=== PATIENT | male | born 1945 | race Asian ===

== ENCOUNTER 2016-11-02 10:16 | Emergency (ER) | payer OTHER ==
[~2016-11-02] VITALS: Ht 165.1 cm; Wt 59.0 kg
[2016-11-02] MEDS ORDERED: METFORMIN HCL500 M1 PO (10:28)
[2016-11-02] MEDS ORDERED: METOPROLOL SUCC50 MG PO (10:28)
[2016-11-02] MEDS ORDERED: TAPAZOLE5 MG PO (13:12)
[2016-11-02] MEDS ORDERED: COUMADIN1 MG PO (13:12)
--- NOTE | 2016-11-02 20:54 | EKG ---
[facility] [address] [facility] [place] [address] Signed Atrial fibrillation with rapid ventricular response Low voltage QRS Nonspecific T wave abnormality Abnormal ECG No previous ECGs available Confirmed by TINO RAMIREZ MD ([id number]) on 11/02/2016 8:54:32 PM Electronically Signed By: TINO RAMIREZ MD 11/02/162053 PATIENT NAME: TEE OLIVEIRA SARAH Electrocardiogram DATE OF : 45 PHYSICIAN: TINO RAMIREZ MD REPORT #: [id number] REPORT IS CONFIDENTIAL AND NOT TO BE RELEASED WITHOUT AUTHORIZATION
[2016-12-17] MEDS ORDERED: METHIMAZOLE10 MG PO (00:24)
== END 2016-11-02 13:42 | disposition home or self-care (01) ==
LOC: ED 10:16
DX: I48.91 Unspecified atrial fibrillation (principal); E05.00 Thyrotoxicosis with diffuse goiter without thyrotoxic crisis or storm; F17.200 Nicotine dependence, unspecified, uncomplicated; Z79.899 Other long term (current) drug therapy; Z79.84 Long term (current) use of oral hypoglycemic drugs
CPT/HCPCS: 71020; 76536; 80053; 83735; 84484; 85025; 85610; 93005; 93010; 99284

== ENCOUNTER 2016-11-26 17:56 | Emergency (ER) | payer OTHER ==
[~2016-11-26] VITALS: Ht 165.1 cm; Wt 58.1 kg
[~2016-11-26 17:56] MED LIST: COUMADIN1 MG PO; METFORMIN HCL500 M1 PO; METOPROLOL SUCC50 MG PO; TAPAZOLE5 MG PO
--- NOTE | 2016-11-28 21:46 | EKG ---
[facility] [address] [facility] [place] [address] Signed Atrial fibrillation with rapid ventricular response ST \T\ T wave abnormality, consider lateral ischemia Abnormal ECG When compared with ECG of 02-NOV-2016 10:21, No significant change was found Confirmed by TINO RAMIREZ MD ([id number]) on 11/28/2016 9:46:18 PM Electronically Signed By: TINO RAMIREZ MD 11/28/16 2146 PATIENT NAME: TEE OLIVEIRA SARAH Electrocardiogram DATE OF : 45 PHYSICIAN: TINO RAMIREZ MD REPORT #: [id number] REPORT IS CONFIDENTIAL AND NOT TO BE RELEASED WITHOUT AUTHORIZATION
--- NOTE | 2016-11-28 21:46 | EKG ---
[facility] [address] [facility] [place] [address] Signed Atrial fibrillation with rapid ventricular response with premature ventricular or aberrantly conducted complexes ST \T\ T wave abnormality, consider lateral ischemia Abnormal ECG When compared with ECG of 26-NOV-2016 18:08, (Unconfirmed) T wave inversion now evident in Anterior leads Confirmed by TINO RAMIREZ MD ([id number]) on 11/28/2016 9:46:22 PM Electronically Signed By: TINO RAMIREZ MD 11/28/16 2146 PATIENT NAME: TEE OLIVEIRA SARAH Electrocardiogram DATE OF : 45 PHYSICIAN: TINO RAMIREZ MD REPORT #: [id number] REPORT IS CONFIDENTIAL AND NOT TO BE RELEASED WITHOUT AUTHORIZATION
[2016-12-17] MEDS ORDERED: METHIMAZOLE10 MG PO (00:24)
== END 2016-11-26 19:58 | disposition home or self-care (01) ==
LOC: ED 17:56
DX: I48.91 Unspecified atrial fibrillation (principal); E07.9 Disorder of thyroid, unspecified; Z87.891 Personal history of nicotine dependence; Z79.899 Other long term (current) drug therapy; Z79.01 Long term (current) use of anticoagulants
CPT/HCPCS: 71010; 80053; 83880; 84439; 84443; 84481; 84484; 85025; 85610; 93005; 93010; 96374; 99283

== ENCOUNTER 2017-01-15 20:40 | Emergency (ER) | payer OTHER ==
[~2017-01-15] VITALS: Ht 165.1 cm; Wt 58.1 kg
[~2017-01-15 20:40] MED LIST changes: +METHIMAZOLE10 MG PO
--- NOTE | 2017-01-16 22:52 | EKG ---
[facility] [address] [facility] [place] [address] Signed Normal sinus rhythm Normal ECG When compared with ECG of 17-DEC-2016 00:20, Sinus rhythm has replaced Atrial fibrillation Vent. rate has decreased BY 76 BPM Nonspecific T wave abnormality no longer evident in Inferior leads Nonspecific T wave abnormality no longer evident in Lateral leads Confirmed by TINO RAMIREZ MD ([id number]) on 01/16/2017 10:52:01 PM Electronically Signed By: TINO RAMIREZ MD 01/16/17 2252 PATIENT NAME: TEE OLIVEIRA SARAH Electrocardiogram DATE OF : 45 PHYSICIAN: TINO RAMIREZ MD REPORT #: [id number] REPORT IS CONFIDENTIAL AND NOT TO BE RELEASED WITHOUT AUTHORIZATION
== END 2017-01-15 23:55 | disposition home or self-care (01) ==
LOC: ED 20:40
DX: R56.9 Unspecified convulsions (principal); I48.91 Unspecified atrial fibrillation; Z87.891 Personal history of nicotine dependence; Z79.899 Other long term (current) drug therapy
CPT/HCPCS: 70450; 71010; 80053; 84484; 85025; 85610; 85730; 93005; 93010; 99284

== ENCOUNTER 2017-01-18 09:02 | Inpatient (IN) | payer OTHER ==
[~2017-01-18] VITALS: Ht 165.1 cm; Wt 60.3 kg
--- NOTE | 2017-01-18 15:40 | NUR ---
PT ARRIVED TO FLOOR VIA STRETCHER. SON IN LAW WITH PT TO TRANSLATE. ORIENTED TO ROOM AND CALL LIGHT.
--- NOTE | 2017-01-18 17:43 | NUR ---
BEDSIDE SWALLOW EVAL COMPLETE. PT PASSED EVALUATION. WILL PLACE ON SOFT CARDIAC DIET. PT DENIED WANT/NEED FOR FOOD AT THIS POINT. FRESH WATER GIVEN. SON IN LAW IN ROOM TO TRANSLATE.
--- NOTE | 2017-01-18 18:12 | NUR ---
PT YET TO VOID. BLADDER SCANNED PT FOR 220ML. MD NOTIFIED. ORDER FOR LR BOLUS GIVEN.
--- NOTE | 2017-01-18 18:13 | NUR ---
SPEECH THERAPY IN ROOM WITH PT.
--- NOTE | 2017-01-18 19:17 | EKG ---
[facility] [address] [place] [address] Signed Atrial flutter with variable AV block Abnormal ECG When compared with ECG of 15-JAN-2017 21:14, Atrial flutter has replaced Sinus rhythm Vent. rate has increased BY 96 BPM Confirmed by TINO RAMIREZ MD ([id number]) on 01/18/2017 7:17:32 PM Electronically Signed By: TINO RAMIREZ MD 01/18/17 1917 PATIENT NAME: TEE OLIVEIRA SARAH Electrocardiogram DATE OF : 45 PHYSICIAN: TINO RAMIREZ MD REPORT #: [id number] REPORT IS CONFIDENTIAL AND NOT TO BE RELEASED WITHOUT AUTHORIZATION
--- NOTE | 2017-01-19 00:53 | NUR ---
PATIENT PLACED ON 2L O2 VIA NC FOR DESAT TO 88% WHILE SLEEPING
--- NOTE | 2017-01-19 04:25 | NUR ---
PATIENT SITS AT SIDE OF BED AND VOIDS IN URINAL.
--- NOTE | 2017-01-19 05:16 | NUR ---
PATIENT RESTED WELL DURING NIGHT WITH NO COMPLAINTS. PLACED ON 2L OF O2 FOR DESAT IN MIDDLE OF NIGHT WITH NO ADDITIONAL RESPIRATORY ISSUES. SON-IN-LAW STAYS WITH PATIENT IN ROOM. PATIENT RECEIVES IV FLUIDS AND USES URINAL TO VOID. NO N/V/D DURING NIGHT.
--- NOTE | 2017-01-19 08:00 | NUR ---
TO MRI VIS MRI TABLE. ORDERS RECIEVED, RN IS NOT REQUIRED TO GO TO MRI WITH PATIENT.
--- NOTE | 2017-01-19 08:35 | NUR ---
RETURN TO CCU. BREAKFAST GIVEN.
--- NOTE | 2017-01-19 09:41 | NUR ---
SAT UP IN BED TO TAKE BREAKFAST. C/O DIZZINESS. BP-139/98 (108). HOB DOWN AFTER BREAKFAST.
--- NOTE | 2017-01-19 10:08 | NUR ---
DR. RAMIREZ HERE TO SEE PATIENT. PATIENT WILL BE TRANSFERRED TO MEDICAL FLOOR LATER TODAY.
--- NOTE | 2017-01-19 10:30 | NUR ---
PHYS THERAPY HERE TO WORK WITH PATIENT.
--- NOTE | 2017-01-19 11:00 | NUR ---
HAS BEEN VOIDING TO URINAL W/O PROBLEMS.
--- NOTE | 2017-01-19 11:00 | NUR ---
OCCUPATIONAL THERAPY HERE TO WORK WITH PATIENT.
--- NOTE | 2017-01-19 12:45 | NUR ---
SAT UP IN BED TO TAKE LUNCH. TOLERATED WELL DENIES NAUSEA.
--- NOTE | 2017-01-19 15:00 | NUR ---
report to medical floor.TELE DC'D. PATIENT DENIES PAIN.
--- NOTE | 2017-01-19 17:57 | NUR ---
PT TRANSFERED TO FLOOR FROM CCU THIS AFTERNOON. PT IS NON-LITHUANIAN SPEAKING, SON IN LAW IN BEDSIDE AND TRANSLATES. PT HAS MINOR LEFT SIDE DEFICETS S/P CVA. LEFT FOOT DRAGS MORE THAN RIGHT. PT TOLERATING REGULAR DIET WELL, NO SWALLOWING RESTRICTIONS.
--- NOTE | 2017-01-19 19:00 | NUR ---
SHIFT REPORT RECIEVED. PATIENT RESTING IN BED. HE APPEARS ALERT AND CALM. PATIENT'S SON IS NOT IN ROOM AT THIS TIME FOR INTERPRETATIONS. CALL LIGHT IN REACH.
--- NOTE | 2017-01-19 21:00 | NUR ---
EVENING MEDS GIVEN PER ORDER. PATIENT ASSESSMENT COMPLETE. WITH ASSISTANCE FROM THE PATIENT'S SON WHO IS IN THE ROOM, THE PATIENT IS NOT EXPERIENCING PAIN OR NAUSEA. HE IS AAOX3. LUNG SOUNDS CLEAR. BOWELS ACTIVE, ABD SOFT AND NONTENDER. PATIENTS SECURITY OFFICER SUPERVISOR STRENGTH IS EQUAL. STRENGTH IS LOWER EXTREMITIES APPEARS EQUAL, BUT PATIENT REPORTS FEELING WEAKER IN THE LEFT LEG. DENIES BEING DIZZY. PATIENT ABLE TO PERFORM HIS OWN EVENING CARE WITH SET UP HELP FROM HIS SON. DENIES ANY FURTHER NEEDS AT THIS TIME.
--- NOTE | 2017-01-19 23:00 | NUR ---
PATIENT RESTING. EYES CLOSED. RR 14. SON IN ROOM, SLEEPING ON COUCH. CALL LIGHT WITHIN REACH.
--- NOTE | 2017-01-20 01:05 | NUR ---
IV FLUIDS FINISHED. PATIENT SL. SITE WNL. URNAL EMPTIED. OUTPUT QS. THE SON DENIES THAT THE PATIENT HAS ANY NEEDS AT THIS TIME. CALL LIGHT IN REACH.
--- NOTE | 2017-01-20 03:00 | NUR ---
PATIENT RESTING IN BED. EYES CLOSED. RR 14. SON SLEEPING ON THE COUCH.
--- NOTE | 2017-01-20 05:34 | NUR ---
PATIENT RESTED WELL THROGUHOUT THE NIGHT. SON REMAINS IN ROOM FOR TRANSLATION ASSISTANCE. PATIENT USES URNAL WELL, OUTPUT QS. PATIENT HAS NOT BEEN OUT OF BED FOR THE SHIFT. WITH ASSISTANCE FROM THE SON; THE PATIENT APPEARS TO BE AAOX3. DENIES PAIN, NUASEA AND DIZZINESS. NIH STROKE SCALE FINDINGS AREA UNCHANGED. IV SL NOW PER ORDER.
--- NOTE | 2017-01-20 06:03 | NUR ---
MORNIGN MEDS GIVEN. PATIENT RESTING IN BED, AROUSED TO TOUCH. NO VISUALIZED DIFFICULTY SWALLOWING MEDS OR DRINKING WATER. THE PATIENTS SON DENIES THAT THE PATIENT HAS ANY NEEDS AT THIS TIME. ALLOWED TO REST. CALL LIGHT IN REACH.
--- NOTE | 2017-01-20 07:06 | NUR ---
RECIEVED BEDSIDE REPORT FROM PADMINI COLLINS. PT SLEEPING, BREATHING EVEN AND UNLABORED. PT APPEARS COMFORTABLE. SON AT BEDSIDE.
--- NOTE | 2017-01-20 07:34 | NUR ---
patient does not speak polish and watch manufacturing supervisor (son) was not in room, i asked him if he was OK and he said yes. will check back in when wson gets back.
--- NOTE | 2017-01-20 09:33 | NUR ---
MED STUDENT REPORTED PT WAS NAUSEOUS. USING TRANSLATION BRAD, VERIFIED NAUSEA. PRN IV ZOFRAN GIVEN. SON RETURN RN WAS IN ROOM. VERIFIED WITH SON THAT MEDICATIONS WERE GIVEN AND PT WAS UP AND WALKED TO BATHROOM.
[2017-01-20] MEDS ORDERED: METOPROLOL SUC100 MG PO (09:57)
[2017-01-20] MEDS ORDERED: WARFARIN SODIUM1 MG PO (09:59)
--- NOTE | 2017-01-20 10:16 | NUR ---
PRN ZOFRAN EFFECTIVE.
--- NOTE | 2017-01-20 11:53 | NUR ---
PT CALLED NURSING STATION, HE REQUESTED CARES BUT WAS UNABLE TO DETERMINE WHAT HE NEEDED. PT WAS RUBBING HIS STOMACH AND MIMED EATING. UNABLE TO DETERMINE IF HE WAS HUNGRY OR NOT. MESSAGE LEFT ON SON'S CELL PHONE, MADE CONTACT WITH SON AT WORK NUMBER. SON WILL BE AT THE HOSPITAL IN 10 MINUTES TO ASSIST. ATTEMPTED TO COMMUNICATE TO THE PT.
--- NOTE | 2017-01-20 12:47 | NUR ---
PT UP WALKING WITH PHYSICAL THERAPY. SON IS PRESENT.
--- NOTE | 2017-01-20 13:26 | NUR ---
PATIENT REFUSED SHOWER. SON SAID HE GAVE HIM A PARTIAL BATH THIS MORNING.
--- NOTE | 2017-01-20 17:28 | NUR ---
NO CHANGES IN STROKE SCALE, THOUGH IT IS DIFFICULT TO ASSESS DUE TO THE LANGUAGE BARRIER. PT UP TO BATHROOM AND WORKING WITH PHYSICAL THERAPY. OK TO WALK WITH NURSING STAFF IF REQUESTED. FAMILY IN ROOM PART OF DAY, PHRASE SHEET IN ROOM FOR TIMES WHEN FAMILY IS NOT PRESENT. VOIDING QS. BM X1. TOLERATING REG DIET WELL.
--- NOTE | 2017-01-20 19:05 | NUR ---
SHIFT REPORT RECIEVED. PATIENT WATCHING TV IN BED. FAMILY IN THE ROOM.
--- NOTE | 2017-01-20 21:15 | NUR ---
EVEING MEDS GIVEN PER ORDER. PATIENT ASSESSMENT COMPLETE. PATIENT IS SL, IV SITE WNL. PATIENT ASSISTANT STRENGTH IS EQUAL BILATERALLY. NO ATAXIA NOTICED IN ALL EXTREMITIES. LEG STRENGTH APPEARS EQUAL BILATERALLY. PATIENT HAS NOT GOTTEN OUT OF BED YET THIS SHIFT. IS USING THE URNAL W/O ISSUE. PATIENT DENIES NAUSEA, DIZZINESS, AND PAIN. AAOX3. NO SLURRED SPEECH. PEDAL PULSES ARE STRONG BILATERALLY AND NO EDEMA NOTED. GHANSHYAM HOSE IN PLACE. NO FURTHER NEEDS AT THIS TIME.
--- NOTE | 2017-01-20 23:16 | NUR ---
PATIENT RESTING IN BED. EYES CLOSED, RR15. FAMILY IN ROOM. CALL LIGHT IN REACH.
--- NOTE | 2017-01-21 01:00 | NUR ---
PATIENT RESTING IN BED. FAMILY IN ROOM. CALL LIGHT IN REACH. EYES CLOSED, RR16.
--- NOTE | 2017-01-21 03:10 | NUR ---
PATIENT RESTING IN BED. EYES CLOSED. RR 14. FAMILY IN ROOM. CALL LIGHT IN REACH.
--- NOTE | 2017-01-21 05:06 | NUR ---
PATIENT RESTED WELL THROUGHOUT SHIFT. FAMILY REMAINS AT BEDSIDE. PATIENT DENIES DIZZINESS, NAUSEA, AND PAIN THROUGHOUT SHIFT. PATIENT HAS NOT BEEN OUT OF BED, USED URNAL FOR TOILETING NEEDS.
--- NOTE | 2017-01-21 05:50 | NUR ---
MORNING MEDS GIVEN. VS TAKEN, WNL. FAMILY IN ROOM TO TRANSLATE. PATIENT DENIES PAIN, NAUSEA, AND DIZZINESS. DENY NEEDS AT THIS TIME. CALL LIGHT IN REACH.
--- NOTE | 2017-01-21 07:28 | NUR ---
RECIEVED BEDSIDE REPORT FROM PADMINI COLLINS. PT SLEEPING WELL, BREATHING EVEN AND UNLABORED. PT APPEARS COMFORTABLE.
--- NOTE | 2017-01-21 07:50 | NUR ---
NEURO CHECK, NO CHANGES THOUGH DIFFICULT TO COMMUNICATE WITHOUT SON PRESENT. PT ABLE TO SMILE, NO DROOPING NOTED. PT ABLE TO MOVE ARMS EQUALLY WITH NO DRIFTING. STRENGTH EQUAL. SON NOT PRESENT AT THIS TIME, PT WAS ON SKYPE WITH FAMILY.
--- NOTE | 2017-01-21 07:53 | NUR ---
PATIENT WAS IN BED VIDEO CHATTING WITH HIS FAMILY, I REFILLED HIS WATER AND ASKED IF HE WAS OK HE SHOOK HS HEAD YES AND SAID THANK YOU
--- NOTE | 2017-01-21 10:27 | NUR ---
PT'S SON REPORTED TO NURSING STAFF THAT THERE WAS A SMALL AMOUNT OF BLOOD IN THE TOILET BOWEL AFTER A SMALL LIQUID BM. PT REPORTS NO NAUSEA, NO PAIN, NO VOMITING. PT SON REPORTED THERE HAS BEEN BLOOD IN 2 STOOLS. AWARE.
--- NOTE | 2017-01-21 13:20 | NUR ---
PT RESTING IN BED, APPEARS COMFORTABLE. NO COMPLAINTS OF NAUSEA, PAIN, ABD PAIN, BLOATING. PT TOLERATING IV FLUIDS WELL.
--- NOTE | 2017-01-21 17:48 | NUR ---
PT'S SON REPORTED POSSIBLE BLOOD IN TOILET AFTER A SMALL BM X2. SERIAL LABS ORDERED, WNL AT THIS TIME. PT REPORTED DIZZINESS, LR BOLUS X500ML. CONTINUE FLUIDS AT 65ML. PT REPORTS NO NAUSEA, NO ABD PAIN, NO VOMITING. PT TOLERATING REG DIET WELL. NO CHANGE IN NEURO STATUS.
--- NOTE | 2017-01-21 18:55 | NUR ---
RECEIVED REPORT FROM RN. PATIENT DENIES NEEDS AT THIS TIME. CALL LIGHT WITHIN REACH.
--- NOTE | 2017-01-21 21:35 | NUR ---
PATIENT IS RESTING COMFORTABLY IN BED, BREATHING IS EVEN AND UNLABORED. DENIES NEEDS AT THIS TIME, PATIENT DENIES PAIN. SHIFT ASSESSMENT DONE, EVENING MEDICATIONS GIVEN. PATIENT DENIES BLOODY STOOL SINCE THIS MORNING. WILL CONTINUE TO MONITOR. CALL LIGHT WITHIN REACH, SON IN LAW AT BEDSIDE.
--- NOTE | 2017-01-21 22:30 | NUR ---
PATIENT IS RESTING COMFORTABLY IN BED, BREATHING IS EVEN AND UNLABORED ON 2L O2 VIA NC. DENIES NEEDS AT THIS TIME. URINAL EMPTIED. CALL LIGHT WITHIN REACH, SON-IN-LAW AT BEDSIDE.
--- NOTE | 2017-01-22 00:50 | NUR ---
PATIENT RESITING COMFORTABLY IN BED, BREATHING IS EVEN AND UNLABORED. CALL LIGHT WITHIN REACH, FAMILY AT BEDSIDE.
--- NOTE | 2017-01-22 01:45 | NUR ---
PATIENT RESTING COMFORTABLY IN BED, BREATHING IS EVEN AND UNLABORED. DENIES NEEDS AT THIS TIME. HEART RATE IS 66 WITH NORMAL SINUS. CALL LIGHT IS WITHIN REACH, FAMILY AT BEDSIDE.
--- NOTE | 2017-01-22 05:59 | NUR ---
PATIENT'S NIGHT WAS UNEVENTFUL. HE HAS BEEN RESTING COMFORTABLY THROUGHOUT SHIFT. VSS, NO COMPLAINTS OF PAIN. HE IS A 1PA, HAS IV FLUIDS RUNNING. THERE HAVE BEEN NO BLOODY STOOLS THIS SHIFT. NO ACUTE CHANGES FROM BEGINNING OF SHIFT ASSESSMENT.
--- NOTE | 2017-01-22 07:16 | NUR ---
RECIEVED BEDSIDE REPORT FROM DENA, RN. PT AWAKE, TALKING TO FAMILY VIA TABLET. SON IS NOT IN ROOM, MAKING COMMUNICATION DIFFICULT. PT VOIDING WELL, NO BM OVERNIGHT. LR RUNNING AT 65ML/HR.
--- NOTE | 2017-01-22 08:19 | NUR ---
PATIENT REFUSED SHOWER BUT SON SAID DID A PARTIAL BED BATH. LINENS CHANGED AND ROOM STRAIGHTEN UP.
--- NOTE | 2017-01-22 08:24 | NUR ---
TELE REMOVED SO PT CAN GO TO MRI.
--- NOTE | 2017-01-22 11:49 | NUR ---
PT POSITION CHANGED, ATTEND CHANGED. PT IN PLEASANT MOOD.
== END 2017-01-22 12:45 | disposition still patient (30) | DRG 65 ==
LOC: ED 09:02 → CCU 15:05 → MS 01-19 15:25
PROVIDERS: ADMIT Internal Medicine
DX: I63.9 Cerebral infarction, unspecified (principal); K92.2 Gastrointestinal hemorrhage, unspecified; I48.0 Paroxysmal atrial fibrillation; E05.00 Thyrotoxicosis with diffuse goiter without thyrotoxic crisis or storm; E11.9 Type 2 diabetes mellitus without complications; Z79.01 Long term (current) use of anticoagulants; R27.8 Other lack of coordination; R42 Dizziness and giddiness; H53.2 Diplopia; R13.10 Dysphagia, unspecified; R29.810 Facial weakness
CPT/HCPCS: 36415; 51798; 70450; 70551; 80053; 80061; 83735; 84484; 85025; 86850; 86900; 86901; 86920; 92610; 93005; 93010; 96361; 96374; 96375; 97110; 97112; 97162; 97165; 97530; 99285; J2405; J7030; J7120

== ENCOUNTER 2017-01-22 12:45 | Inpatient (IN) | payer OTHER ==
[~2017-01-22 12:45] MED LIST changes: +METOPROLOL SUC100 MG PO; +WARFARIN SODIUM1 MG PO
--- NOTE | 2017-01-22 18:20 | NUR ---
PT CHANGED TO SWING BED THIS SHIFT. PT HAD F/U MRI THIS MORNING. NO ADDITONAL BLOODY STOOL EPISODES. LAB WORK STABLE. NO CHANGE IN NEURO CHECKS. PT UP WORKING [facility].
--- NOTE | 2017-01-22 19:07 | NUR ---
RECEIVED REPORT FROM RN. PATIENT IS RESTING COMFORTABLY IN BED. CALL LIGHT WITHIN REACH.
--- NOTE | 2017-01-22 21:08 | NUR ---
DC'D IV IN RIGHT ARM DUE TO PATIENT'S SWING BED STATUS AND HE IS NOT RECEIVING ANY IV MEDICATIONS OR FLUIDS. VERBAL ORDER RECEIVED FROM DR. MERCADO.
--- NOTE | 2017-01-23 02:44 | NUR ---
PATIENT RESTING COMFORTABLY IN BED, BREATHING IS EVEN AND UNLABORED. DENIES NEEDS AT THIS TIME. CALL LIGHT WITHIN REACH, FAMILY AT BEDSIDE.
--- NOTE | 2017-01-23 04:55 | NUR ---
PATIENT'S NIGHT WAS UNEVENTFUL. HE HAS BEEN RESTING COMFORTABLY IN BED THROUGHOUT SHIFT. VSS, NO COMPLAINTS OF PAIN. HE IS A SBA, HAS NO IV ACCESS. PATIENT REMAINS NEUROLOGICALLY INTACT. NO ACUTE CHANGES FROM BEGINNING OF SHIFT.
--- NOTE | 2017-01-23 07:21 | NUR ---
REPORT RECIEVED FROM PADMINI CABALLERO. PT AWAKE AND WATCHING TV ON HIS TABLET.
--- NOTE | 2017-01-23 07:50 | NUR ---
PATIENT IN BED DOING WELL, DOES NOT NEED ANYTHING CURRENTLY. WHITEBOARD UPDATED, ROOM TIDIED.
--- NOTE | 2017-01-23 09:51 | NUR ---
PATIENT WANTS TO SHOWER AT 1:00.
--- NOTE | 2017-01-23 10:15 | NUR ---
PT SON IN ROOM AND TRANSLATED ALL QUESTIONS. PT DENIES ANY WEAKNESS OR S\S OF DEFICIT.
--- NOTE | 2017-01-23 12:21 | NUR ---
SON JUST LEFT FOR AWHILE. PT APPEARS COMFORTABLE. INCENTIVE SPIROMETER IN LAP AFTER INSTRUCTING PT AND SON THIS MORNING ON HOW TO USE AND IMPORTANCE OF USING.
--- NOTE | 2017-01-23 12:22 | NUR ---
PATIENT IN BED, RESTING. SON JUST LEFT, BUT BEFORE HE LEFT HE TRANSLATED THAT THE PATIENT DOES NOT NEED ANYTHING AT THIS TIME. TOOK LUNCH TRAY OUT, PATIENT ATE A MAJORITY OF FOOD. REFILLED ICE WATER.
--- NOTE | 2017-01-23 13:36 | NUR ---
ASSISTED PT WITH SHOWER. PT SAT IN CHAIR AND WASHED SELF. ASSISTED WITH HAIR WASHING AND DRYING. PUT NEW GHANSHYAM HOSE ON WITH HELP OF PT. GAVE NEW ICE WATER. PT NOW BACK IN BED.
--- NOTE | 2017-01-23 15:24 | NUR ---
PATIENT IN BED. SON IN ROOM. DOES NOT NEED ANYTHING AT THIS TIME.
--- NOTE | 2017-01-23 15:33 | NUR ---
PT WORKING WITH OCC. THER. APPEARS TO BE DOING WELL. ADMINISTERED AFTERNOON MED.
--- NOTE | 2017-01-23 16:24 | NUR ---
PATIENT IN BED WATCHING TV. WAITING FOR FAMILY TO BRING IN DINNER. DOES NOT NEED ANYTHING AT THIS TIME.
--- NOTE | 2017-01-23 17:19 | NUR ---
PT ABLE TO ASK FOR THE INTERNET ON HIS IPAD. ADMINISTERED SCHED. MED. PT DENIES CONCERNS.
--- NOTE | 2017-01-23 17:37 | NUR ---
PT HAD UNEVENTFUL DAY. SHOWERED WITH ASSIST. WORKED WITH PHYS AND OCCUPATIONAL THERAPY. SON IN LAW TRANSLATES. DENEIS PAIN. CRACKLES IN BASES, ENCOURAGED IS.
--- NOTE | 2017-01-23 17:49 | NUR ---
received verbal report from Alisson W[place]. all questions answered.
--- NOTE | 2017-01-23 19:00 | NUR ---
SHIFT REPORT RECIEVED. PATIENT RESTING IN BED WATCHING TV. PROVIDED FRESH WATER. FAMILY NOT IN ROOM.
--- NOTE | 2017-01-23 20:15 | NUR ---
EVENING MEDS GIVEN PER ORDER. PATIENT ASSESSMENT COMPLETED. PATIENT IS ALERT, COMMUNICATION IS DIFFICULT. USING TRANSLATION SHEET PATIENT COMMUNICATED THAT HE IS NOT IN PAIN, DIZZY, OR HAVING NAUSEA. NEURO CHECKS ARE WNL. PATIENT IS USING URNAL. BED ALARM ON. CALL LIGHT IN REACH.
--- NOTE | 2017-01-23 22:30 | NUR ---
PATIENT RESTING IN BED. CALL LIGHT IN REACH. EYES CLOSED. RR14.
--- NOTE | 2017-01-23 23:47 | NUR ---
PATIENT RESTING IN BED. FAMILY IN ROOM. THROUGH INTERPRETATION THE PATIENT DENIES NEEDS AT THIS TIME. CALL LIGHT IN REACH.
--- NOTE | 2017-01-24 01:30 | NUR ---
PATIENT RESTING IN BED. FAMILY IN ROOM. EYES CLOSED. RR18.
--- NOTE | 2017-01-24 03:57 | NUR ---
PATIENT RESTING. EYES CLOSED. RR 16.
--- NOTE | 2017-01-24 05:07 | NUR ---
PATIENT RESTED WELL THROUGHOUT SHIFT. FAMILY STAYED WITH PATIENT. PATIENT DENIES DIZZINESS WHILE IN BED. DENIES PAIN AND NAUSEA. NO IV ACCESS. OUTPUT QS, USES URNAL WHILE IN BED. PATIENT NOT OUT OF BED THIS SHIFT. CARDIAC DIET, PATIENT FAMILY BRINGS CULTURALLY APPROPRIATE MEALS. NERUO CHECKS SHOW NO CHANGES.
--- NOTE | 2017-01-24 06:17 | NUR ---
PATIENT RESTING IN BED. FAMILY AT BEDSIDE. NO NEEDS AT THIS TIME.
--- NOTE | 2017-01-24 07:10 | NUR ---
PATIENT IN BED FACETIMING FAMILY ON HIS IPAD. NO NEEDS AT THIS TIME.
--- NOTE | 2017-01-24 07:24 | NUR ---
REPORT RECIEVED FROM PADMINI LUND. PT AWAKE AND ON IPAD FACETIMING WITH FAMILY.
--- NOTE | 2017-01-24 09:48 | NUR ---
PATIENT RESTING IN BED. FRESH ICE WATER IN CUP. SON IN ROOM. PATIENT REQUESTED AN ENSURE. ENSURE GIVEN. CALL BUTTON IN REACH NO OTHER NEEDS AT THIS TIME.
--- NOTE | 2017-01-24 10:00 | NUR ---
PATIENT STATES THAT HE SHOWERED YESTERDAY AND DOES NOT WANT ONE TODAY. ORAL CARE DONE.HANDS AND FACE WASHED.NO OTHER NEEDS AT THIS TIME.SON IN ROOM.
--- NOTE | 2017-01-24 10:36 | NUR ---
PT RESTING IN BED. DENIES CONCERNS.
--- NOTE | 2017-01-24 11:40 | NUR ---
PT WALKING THE FLOOR WITH PHYS. THER AND SON. APPEARS TO BE DOING WELL.
--- NOTE | 2017-01-24 14:30 | NUR ---
PATIENT SITTING UP IN BED. SON IN ROOM. NO NEEDS AT THIS TIME. REMOVED LUNCH TRAYS. CALL BUTTON IN REACH.
--- NOTE | 2017-01-24 14:48 | NUR ---
PT LAYING IN BED. HAS BEEN PLAYING CARDS AND LOOKING AT HIS IPAD. SON ON SOFA AND DENIES NEEDS, PAIN OR CONCERNS.
--- NOTE | 2017-01-24 14:58 | NUR ---
PT NOW UP WALKING WITH SON AND PHYS. THER.
--- NOTE | 2017-01-24 15:16 | NUR ---
PT SENIOR ASIC ENGINEER STATED THAT THE PATIENT WAS DIZZY AND HAD DOUBLE VISTION. THIS GERONTOLOGY AIDE TOOK VITAL CART TO PATIENT AND NOTIFIED RN. VITALS ARE NORMAL. RN INTO PT ROOM TO ASSESS THE PATIENT.
--- NOTE | 2017-01-24 15:19 | NUR ---
PT REPORTED HAVING DOUBLE VISION IN THE TAG PRESS OPERATOR. ROOM. ASSESSED VS AND EYES. NO CHANGE FROM EARLIER TODAY. STILL HAS DECREASED VISION IN THE LEFT LATERAL FIELD. VS STABLE. WENT AWAY QUICKLY AFTER RESTING ON BENCH. PT WAS ABLE AND WILLING TO WALK BACK TO HIS ROOM.
--- NOTE | 2017-01-24 16:15 | NUR ---
PT GIVEN AFTERNOON MEDS, DENIES QUESTIONS. SON IN ROOM TO TRANSLATE.
--- NOTE | 2017-01-24 17:53 | NUR ---
PT UP TO THE RESTROOM. HAD BM AND URINE. USED BOLTER HELPER, DENIES NEEDS. AMBULATED WELL WITH FWW.
--- NOTE | 2017-01-24 18:19 | NUR ---
PT WORKED WITH OIL AND GAS FIELD TECHNICIAN. X2 TODAY. DIZZY WITH BRIEF DOUBLE VISION. CLEARED AFTER SITTING. DENIES PAIN. LUNGS CLEAR TODAY. UO QS. BM THIS EVENING.
--- NOTE | 2017-01-24 19:10 | NUR ---
SHIFT REPORT RECIEVED. PATIENT RESTING IN BED. CALL LIGHT IN REACH.
--- NOTE | 2017-01-24 20:05 | NUR ---
PATIENT RESTING IN BED. EVENING MEDS GIVEN PER ORDER. USED TRANSLATION SHEET TO COMMUNICATE WITH PATIENT. HE DENIES NAUSEA, DIZZINESS, AND PAIN. DENIES TOILETING NEEDS. URNAL EMPTIED AND PLACED WITHIN REACH. PATIENT MOVES EASILY IN THE BED TO CHANGE POSITIONS. NO NEURO DEFICITS NOTED. CMS INTACT. NO EDEMA. FRESH WATER PROVIDED. PATIENT USING HIS TABLET TO FACETIME WITH FAMILY. CALL LIGHT IN REACH.
--- NOTE | 2017-01-24 22:23 | NUR ---
PATIENT RESTING IN BED. SON IN ROOM FOR TRANSLATION AND DENIES NEEDS AT THIS TIME. CALL LIGHT IN REACH.
--- NOTE | 2017-01-24 23:47 | NUR ---
PATIENT RESTING IN BED. FAMILY IN ROOM. RR 14. CALL LIGHT IN REACH.
--- NOTE | 2017-01-25 01:12 | NUR ---
PATIENT RESTING IN BED. RR 14. SON APPEARS TO BE SLEEPING ON THE COUCH. CALL LIGHT IN REACH.
--- NOTE | 2017-01-25 02:29 | NUR ---
PATIENT RESTING. EYES CLOSED. RR 16. FAMILY IN ROOM.
--- NOTE | 2017-01-25 04:47 | NUR ---
PATIENT IS USING URNAL WITHOUT PROBLEMS. HE IS IN BED. THE PATIENT'S SON DENIES THAT EITHER OF THEM HAVE ANY NEEDS AT THIS TIME.
--- NOTE | 2017-01-25 04:50 | NUR ---
PATIENT RESTED WELL THROUGHOUT SHIFT. USED URNAL FOR TOILETING NEEDS. FAMILY IN ROOM. NO NAUSEA, DIZZINESS, OR PAIN. PATIENT HAS NOT BEEN OUT OF BED THIS SHIFT. TURNS EASILY IN BED. NEURO CHECKS FIND NO DEFICITS. NO IV ACCESS.
--- NOTE | 2017-01-25 06:45 | NUR ---
FAMILY IS GETTING READY TO LEAVE. PATIENT HAS NO NEEDS AT THIS TIME. SON WILL RETURN SOON.
--- NOTE | 2017-01-25 09:00 | NUR ---
PATIENT UP TO BATHROOM, CHANGED LINEN. PATIENT HAD LARGE BM. REFUSED SHOWER AT THIS TIME. TALKED WITH PATIENT ON CLASSIFICATION AND TREATMENT DIRECTOR PHONE, SON WAS NOT IN ROOM. PATIENT VERBALIZED NO PAIN AT THIS TIME. DISCUSSED POC FOR DAY AND ASSESMENT. PATIENT VERBALIZED UNDERSTANDING. PATIENT HAS NO QUESTIONS OR CONCERNS.
--- NOTE | 2017-01-25 12:46 | NUR ---
BEFORE SON LEFT THIS MORNING AROUND 7AM HE GAVE HIM A PARTIAL BED BATH. BRIONNA CHANGED THE LINENS.
--- NOTE | 2017-01-25 14:00 | NUR ---
PHYSICAL THERAPIST BLANCA REPORTED PATIENT STEADY WITH WALKER, 1 PERSON STBY ASSIST. NO COMPLAINTS OF PAIN. SON AT BEDSIDE READING TO PATIENT FROM PHONE, AND DOING VIDEO PHONE CALLS. PATIENT APPEARS COMFORTABLE, RESTING BACK IN BED WITH LEGS CROSSED.
--- NOTE | 2017-01-25 17:56 | NUR ---
PT IS SITTING UP IN BED WITH CALLLIGHT IN REACH EATING HIS DINNER
--- NOTE | 2017-01-25 19:17 | NUR ---
SHIFT REPORT RECIEVED. PATIENT RESTING IN BED. TOW BOAT CAPTAIN ASSITING HIM WITH WARM BLANKETS. FAMILY NOT IN ROOM.
--- NOTE | 2017-01-25 20:54 | NUR ---
EVENING MEDS GIVEN. PATIENT ASSESSMENT COMPLETE. FAMILY IN ROOM TO ASSIST WITH TRANSLATION. PATIENT AAOX3. NO NEURO DEFICITS FOUND. PATIENT DENIES DIZZINESS OR DOUBLE VISION AT THIS TIME. PATIENT RESTING IN BED. LUNGS ARE CLEAR. ABD IS FLAT, NONTENDER, AND ACTIVE BOWEL SOUNDS. NO EDMEA NOTED. CMS INTACT. FAMILY AND PATIENT DENY NEEDS. NO PAIN. ICE WATER IS FILLED. URNAL AT BEDSIDE, DOES NOT NEED EMPTIED AT THIS TIME. CALL LIGHT IN REACH.
--- NOTE | 2017-01-25 22:15 | NUR ---
ROUNDED ON PATIENT. PATIENT IS RESTING IN BED ON TALKING ON THE COMPUTER WITH FAMILY. NO NEEDS AT THIS TIME.
--- NOTE | 2017-01-26 00:40 | NUR ---
PATIENT RESTING IN BED. EYES CLOSED. RR14. FAMILY IN ROOM.
--- NOTE | 2017-01-26 02:27 | NUR ---
PATIENT RESTING IN BED. EYES CLOSED. RR 16. CALL LIGHT IN REACH. SON IN ROOM APPEARS TO BE SLEEPING.
--- NOTE | 2017-01-26 04:45 | NUR ---
PATIENT RESTING IN BED. EYES CLOSED. RR15. CALL LIGHT IN REACH.
--- NOTE | 2017-01-26 05:14 | NUR ---
PATIENT RESTED WELL THROUGHOUT SHIFT. SON IS AT BEDSIDE AND THERE FOR INTERPRETATION. PATIENT DENIED ANY CONCERNS. HAS USED URNAL THROUGOUT SHIFT AND NOT BEEN OUT OF BED. NO IV.
--- NOTE | 2017-01-26 06:46 | NUR ---
FAMILY RECIEVED SOME WATER FOR THE PATIENT. CAROLINEEIS NEED AT THIS TIME. FAMILY GOING HOME AND WILL RETURN BY 9AM.
--- NOTE | 2017-01-26 07:28 | NUR ---
BEDSIDE REPORT RECEIVED FROM PADMINI COLLINS. PT LYING IN BED, TALKING ON PHONE. USED QUESTION SHEET WITH TRANSLATION NEXT TO PT TO ASK IF PT HAD PAIN, WAS HUNGRY, AND IF HE NEEDED TO USE THE RESTROOM. PT STATED THAT HE WAS HUNGRY, HIS BREAKFAST HAS BEEN ORDERED. PT DENIED PAIN, NEED TO USE RESTROOM. WILL CONTINUE TO MONITOR.
--- NOTE | 2017-01-26 08:07 | NUR ---
GOT PATIENT NEW ICE WATER AND A STRAW.
--- NOTE | 2017-01-26 09:30 | NUR ---
PT ASSESSMENT COMPLETE. PT LYING IN BED, SON IN ROOM INTERPRETING. PT DENIES PAIN, DISCOMFORT, ANY NEEDS AT THIS TIME. PT ORIENTED, PERRL, PT ABLE TO FOLLOW COMMANDS. NO WEAKNESS NOTED BILATERALLY, UPPER OR LOWER EXTREMITIES. CSM INTACT BILATERALLY UPPER AND LOWER EXTREMITIES. PT HAS CALL LIGHT, SON IN ROOM, WILL CONTINUE TO MONITOR.
--- NOTE | 2017-01-26 11:39 | NUR ---
PT OUT OF ROOM, WORKING WITH PHYSICAL THERAPY.
--- NOTE | 2017-01-26 11:52 | NUR ---
UP IN CHAIR EATING LUNCH WITH HIS SON ALSO PANCHO HART WILL TAKE A SHOWER AT 1PM TODAY.
--- NOTE | 2017-01-26 15:55 | NUR ---
PT OUT OF ROOM, WORKING WITH PHYSICAL THERAPY.
--- NOTE | 2017-01-26 15:59 | NUR ---
PATIENT TOOK A SHOWER AT 1300 TODAY DID EVERYTHING HIMSELF. CHANGED LINENS
--- NOTE | 2017-01-26 16:29 | NUR ---
CHECKED ON PT, PT'S SON STATES HE HAS NO REQUESTS AT THIS TIME. BROUGHT PT MORE ICE WATER. CALL LIGHT IN REACH. WILL CONTINUE TO MONITOR. ASSEMBLER SEMICONDUCTOR IN ROOM PLAYING CARDS W PT AND MED STUDENT.
--- NOTE | 2017-01-26 17:44 | NUR ---
PT SITTING UP AT SIDE OF BED EATING DINNER. PT IN ROOM. MED STUDENT ASKED IF THEY HAD ANY NEEDS AT THIS TIME, PT AND DENIED, PT STATES HE'S STILL EATING. WILL CONTINUE TO MONITOR.
--- NOTE | 2017-01-26 18:47 | NUR ---
PT WORKED WITH PHYSICAL THERAPY X 2 THIS SHIFT, AMBULATED WITH FWW AND SBA. PT SPENT MAJORITY OF DAY IN BED, PT'S SON AND MEDICAL STUDENT ABLE TO INTERPRET CONVERSATIONS THROUGHOUT DAY. PT HAD NO REQUESTS TODAY OTHER THAN MEALS AND ORDERED MEDICATIONS. BROUGHT PT WATER THROUGHOUT SHIFT.
--- NOTE | 2017-01-26 19:34 | NUR ---
REPORT RECVD FROM ELMA WASHINGTON. PT AWAKE IN ROOM TALKING WITH . PER RN SON TO RETURN TONIGHT KTO TRANSLATE FOR PT. NO FURTHER NEEDS AT THIS TIME. CALL LIGHT IN REACH.
--- NOTE | 2017-01-26 21:07 | NUR ---
IN TO SEE PT, PT AWAKE. SON AT BEDSIDE TO TRANSLATE. ASSESSMENT COMPLETE. PM MEDICATIONS GIVEN. ENSURE REQUESTED, GIVEN. PT DENIES PAIN OR NAUSEA. NO IV ACCESS. NO FURTHER NEEDS AT THIS TIME. SON TO STAY AT BEDSIDE. CALL LIGHT IN REACH.
--- NOTE | 2017-01-26 21:52 | NUR ---
PATIENT DOING WELL, IN BED RESTING.
--- NOTE | 2017-01-26 23:50 | NUR ---
PATIENT IN BED ASLEEP. DOES NOT NEED ANYTHING AT THIS TIME.
--- NOTE | 2017-01-26 23:52 | NUR ---
IN TO CHECK ON PT, PT APPEARS TO BE SLEEPING. RR EVEN AND UNLABORED. SON SLEEPING AT BEDSIDE. CALL LIGHT IN REACH.
--- NOTE | 2017-01-27 02:03 | NUR ---
EMPTIED PATIENT'S URINAL. PATIENT DOES NOT NEED ANYTHING ELSE AT THIS TIME.
--- NOTE | 2017-01-27 02:30 | NUR ---
IN TO CHECK ON PT, PT RESTING. RR EVEN AND UNLABORED. SON SLEEPING AT BEDSIDE. NO FURTHER NEEDS AT THIS TIME. CALL LIGHT IN REACH.
--- NOTE | 2017-01-27 03:43 | NUR ---
PT HAS HAD UNEVETFUL SHIFT, RESTED WELL. SON AT BEDISIDE TO HELP WITH TRANSLATION. DENIES PAIN OR NAUSEA. NEURO CHECK COMPLETE, NO DEFICIT NOTED. PT USES URINAL IN BED. NO IV ACCESS.
--- NOTE | 2017-01-27 03:45 | NUR ---
NURSE IN ROOM. PATIENT DOES NOT NEED ANYTHING AT THIS TIME.
--- NOTE | 2017-01-27 05:50 | NUR ---
IN TO CHECK ON PT, PT AWAKE WATCHING TV. DENIES NEEDS AT THIS TIME. CALL LIGHT IN REACH.
--- NOTE | 2017-01-27 06:33 | NUR ---
PATIENT STILL ASLEEP. WILL LET SLEEP UNTIL AFTER SHIFT CHANGE UNLESS HE CALLS. SON IS IN ROOM .
--- NOTE | 2017-01-27 08:18 | NUR ---
PT LYING IN BED UPON INITIAL ASSESSMENT. VSS. WILL GIVE ALL SCHEDULED MEDS. REPORTS NO PAIN. LEFT SIDE SLIGHTLY WEAKER THAN LEFT. WILL CONTINUE TO ASSIST PATIENT STANDBY TO BATHROOM. NO NEEDS AT THIS TIME.
--- NOTE | 2017-01-27 11:30 | NUR ---
PT WALKING IN [place] WITH PHYSICAL THERAPY. SON AT BEDSIDE.
--- NOTE | 2017-01-27 13:05 | NUR ---
PT IN BED. CALL LIGHT IN REACH.
--- NOTE | 2017-01-27 14:44 | NUR ---
PT RESTING IN BED. PT DENIES NEEDS AT THIS TIME. PT ATE 50% OF LUNCH.
--- NOTE | 2017-01-27 18:14 | NUR ---
PT HAD UNEVENTFUL DAY. WORKED WITH PHYSICAL THERAPY. PT ON ROOM AIR. PT UP WITH ASSIST X1 WITH GAIT BELT AND FWW. PT VOIDING QS. PLAN TO START ASPIRIN ON 02/01, MONITOR FOR BLEEDING AND DISCHARGE HOME.
--- NOTE | 2017-01-27 23:59 | NUR ---
PT LYING IN BED AWAKE, WAVES WHEN SALVAGE ENGINEER LOOKS IN DOORWAY. PT SON SLEEPING AT BEDSIDE. CALL LIGHT WITHIN PT'S REACH.
--- NOTE | 2017-01-28 02:15 | NUR ---
PT RESTING IN BED WITH EYES CLOSED. RESPIRATIONS EVEN AND UNLABORED, PT APPEARS TO BE SLEEPING. CALL LIGHT WITHIN REACH.
--- NOTE | 2017-01-28 04:30 | NUR ---
PT RESTING IN BED WITH EYES CLOSED. RESPIRATIONS EVEN AND UNLABORED, PT APPEARS TO BE SLEEPING. CALL LIGHT WITHIN REACH, PT'S SON REMAINS AT BEDSIDE.
--- NOTE | 2017-01-28 05:05 | NUR ---
PT RESTED MOST OF NIGHT. 1 PA, FWW, GAIT BELT. UO QS. NON-DIVEHI SPEAKING. SON AT BEDSIDE.
--- NOTE | 2017-01-28 07:05 | NUR ---
PT IN BED, AWAKE, ALERT. USED FILM DEVELOPING MACHINE OPERATOR ON INTERNET TO INTRODUCE THIS RN TO PT, AND EXPLAIN THAT SHIFT IS CHANGING. RECIEVED BEDSIDE REPORT FROM PADMINI RIGGINS.
--- NOTE | 2017-01-28 09:32 | NUR ---
PT SITTING UP IN BED, WATCHING TV. DENIES PAIN, DENIES NAUSEA, DENIES NEED TO USE BATHROOM. GAVE AM MEDICATIONS, WITH EXPLINATION OF WHAT MEDICATIONS PT WAS GIVEN, WELL SOME OF THE MORE COMMON SIDE EFFECTS TO WATCH FOR WITH HIS SCHEDULED AM MEDICATIONS, USING INTERNET SURGICAL FORCEPS FABRICATOR. PT EXPRESSED UNDERSTANDING.
--- NOTE | 2017-01-28 11:45 | NUR ---
PT WORKED WITH PHYSICAL THERAPIST. PT'S SON IN TO SEE PT. ASKED PHYSICAL THERAPIST WHEN SHE RECCOMENDS PT DISCHARGE, AND SHE STATED THAT PT IS OK TO DISCHARGE TO HOME ONCE A WALKER IS OBTAINED FOR PT.
[2017-01-28] MEDS ORDERED: LIPITOR80 MG PO (12:09)
[2017-01-28] MEDS ORDERED: ASPIR-TRIN325 MG PO (12:10)
[2017-01-28] MEDS ORDERED: OMEPRAZOLE20 MG PO (12:11)
--- NOTE | 2017-01-28 12:18 | NUR ---
PT SITTING UP IN BED EATING LUNCH. PT'S SON AT BEDSIDE. DR. RAMIREZ IN TO SEE PT AND SON, DISCUSSED DETAILS OF DISCHARGE. PLAN IS FOR PT TO DISCHARGE TO HOME TODAY ONCE PT HAS WALKER. DR. RAMIREZ PLACED ORDER FOR FLU VAC, DISCUSSED THIS WITH PT'S SON, WHO REPORTED THAT PT RECIEVED FLU VAC IN , SO PT IS CURRENT.
--- NOTE | 2017-01-29 09:30 | NUR ---
OUTPATIENT PT ORDER AND CLINICALS FAXED TO [facility]. FAX CONFIRMATION RECEIVED.
== END 2017-01-28 13:59 | disposition home or self-care (01) | DRG 66 ==
LOC: MS 12:45
PROVIDERS: ADMIT Internal Medicine
DX: I63.9 Cerebral infarction, unspecified (principal); R27.8 Other lack of coordination; R42 Dizziness and giddiness; I48.0 Paroxysmal atrial fibrillation; K25.9 Gastric ulcer, unspecified as acute or chronic, without hemorrhage or perforation; K26.9 Duodenal ulcer, unspecified as acute or chronic, without hemorrhage or perforation; K64.9 Unspecified hemorrhoids; E05.00 Thyrotoxicosis with diffuse goiter without thyrotoxic crisis or storm; E11.9 Type 2 diabetes mellitus without complications
CPT/HCPCS: 94667; 94668; 97110; 97112; 97116; 97162; 97165; 97530

== ENCOUNTER 2017-02-02 14:54 | Observation (INO) | payer OTHER ==
[~2017-02-02] VITALS: Ht 165.1 cm; Wt 58.0 kg
[~2017-02-02 14:54] MED LIST changes: +ASPIR-TRIN325 MG PO; +LIPITOR80 MG PO; +OMEPRAZOLE20 MG PO
--- NOTE | 2017-02-02 17:51 | NUR ---
IV SITE INTACT, PT DENIES PAIN AT SITE, FLUIDS INFUSING EASILY. SON-IN-LAW IS INTURPETING FOR THIS PT WHO SPEAKS NO URDU.
--- NOTE | 2017-02-02 18:10 | NUR ---
PT ABLE TO FINISH DINNER. SITTING UP IN BED. VITALS WNL EXCEPT PT STILL IN AFIB/AFLUTTER. PT ALERT AND ORIENTED X4 SINCE ARRIVAL TO THE UNIT. PT APPEARS CALM AND IS POLITE AND COOPERATIVE. PT HAS DENIED PAIN, NAUSEA, AND SOB SINCE ARRIVAL TO UNIT. JUANITO (SON-IN-LAW) HAS BEEN AN EXCELLENT LOBBYIST.
--- NOTE | 2017-02-02 18:16 | NUR ---
PT RECIEVED DINNER OF CHICKEN SOUP AND FRESH FRUIT.
--- NOTE | 2017-02-02 19:30 | NUR ---
REPORT RECEIVED FROM ORALIA WASHINGTON, PT IN ROOM WITH DAUGHTER AND SON IN LOW INTERPRETTING. PT IS ON CARDIZEM DRIP AT 5MG/HR HR 80'S AFLUTTER.
--- NOTE | 2017-02-02 19:50 | NUR ---
PT IS COMPLAINING OF TROUBLE BREATHING, SPO2 97% ON ROOM AIR, RESP EVEN AND UNLABORED, LUNGS CLEAR. WILL CONTINUE TO MONITOR, DR RAMIREZ AWARE.
--- NOTE | 2017-02-02 20:35 | NUR ---
IN TO DO ASSESSMENT AND GIVE PT HIS HS MEDS. ASKED PT TO TAKE A BREATH, PT TOOK LONG BREATH OF INSPIRATION AND HAD A LONG PAUSE IN HR MEASURING 4.83 SECONDS, THEN CONVERTED FROM AFLUTTER TO SINUS RHYTHM. WILL MONITOR HR FOR A BIT LONGER BEFORE GIVING SCHEDULED 45MG OF CARDIZEM, CARDIZEM DRIP STOPPED.
--- NOTE | 2017-02-02 23:17 | EKG ---
[facility] [address] [facility] [facility] [place] [address] Signed Atrial fibrillation with rapid ventricular response Abnormal ECG When compared with ECG of 18-JAN-2017 09:24, Atrial fibrillation has replaced Atrial flutter Confirmed by TINO RAMIREZ MD ([id number]) on 02/02/2017 11:17:34 PM Electronically Signed By: TINO RAMIREZ MD 02/02/17 2317 PATIENT NAME: TEE OLIVEIRA SARAH Electrocardiogram DATE OF : 45 PHYSICIAN: TINO RAMIREZ MD REPORT #: [id number] REPORT IS CONFIDENTIAL AND NOT TO BE RELEASED WITHOUT AUTHORIZATION
--- NOTE | 2017-02-03 02:27 | NUR ---
AWAKENS EASILY FOR SCHEDULED DOSE OF CARDIZEM 30MG PO. DENIES NEEDS/PAIN/SOB.
--- NOTE | 2017-02-03 06:34 | NUR ---
AWAKE IN BED, ASKS FOR MORE ENSURE. NO OTHER REQUESTS, DENIES PAIN.
--- NOTE | 2017-02-03 09:17 | NUR ---
PT AWAKE AND ALERT, ATE APPROX 50% OF BREAKFAST. A.M. MEDS GIVEN AND PT ABLE TO SWALLOW PILLS WITHOUT PROBLEMS. ASSESSMENT COMPLETED, PT POINTS TO THROAT BUT UNABLE TO UNDERSTAND, SON NOTIFIED TO TRANSLATE AND STATES HE IS ON HIS WAY TO THE HOSPITAL. PT RESTING IN BED WATCHING TV, NO DISTRESS.
--- NOTE | 2017-02-03 10:11 | NUR ---
PT UP AMBULATED TO TOILET WITH ONE PERSON STAND BY ASSIST. PT ABLE TO HAVE BM. LINNENS ON BED CHANGED. PT AMBULATED BACK TO BED WITH ONE PERSON ASSIST.
--- NOTE | 2017-02-03 11:29 | NUR ---
PT RESTING IN BED WATCHING TV. VS AND ASSESSMENT COMPLETED. NO C/O AT THIS TIME.
[2017-02-03] MEDS ORDERED: DILTIAZEM HCL120 MG PO (13:51)
[2017-02-03] MEDS ORDERED: ASPIRIN EC325 MG PO (13:53)
--- NOTE | 2017-02-03 14:25 | NUR ---
PT AMBULATED IN HALLWAY TWICE AND BACK TO ROOM. HR 67-70 BPM, BP 117/71 (77), SATS 93 ON RA, RESP 20.
== END 2017-02-03 15:45 | disposition home or self-care (01) ==
LOC: ED 14:54 → CCU 14:56
PROVIDERS: ADMIT Internal Medicine
DX: I48.0 Paroxysmal atrial fibrillation (principal); E05.00 Thyrotoxicosis with diffuse goiter without thyrotoxic crisis or storm; E78.5 Hyperlipidemia, unspecified; E11.9 Type 2 diabetes mellitus without complications; Z87.891 Personal history of nicotine dependence; Z87.19 Personal history of other diseases of the digestive system; Z86.73 Personal history of transient ischemic attack (TIA), and cerebral infarction without residual deficits; Z87.11 Personal history of peptic ulcer disease; Z79.84 Long term (current) use of oral hypoglycemic drugs; Z79.82 Long term (current) use of aspirin; Z79.899 Other long term (current) drug therapy
CPT/HCPCS: 71010; 80053; 83735; 84484; 85025; 93005; 93010; 96374; 96375; 96376; 99285; G0378; J3475

== ENCOUNTER 2017-02-05 00:13 | Emergency (ER) | payer OTHER ==
[~2017-02-05] VITALS: Ht 165.1 cm; Wt 58.1 kg
[~2017-02-05 00:13] MED LIST changes: +ASPIRIN EC325 MG PO; +DILTIAZEM HCL120 MG PO
--- NOTE | 2017-02-05 18:17 | EKG ---
[facility] [address] [place] [address] Signed Sinus bradycardia Otherwise normal ECG When compared with ECG of 02-FEB-2017 15:00, Sinus rhythm has replaced Atrial fibrillation Vent. rate has decreased BY 68 BPM Confirmed by TINO RAMIREZ MD ([id number]) on 02/05/2017 6:16:51 PM Electronically Signed By: TINO RAMIREZ MD 02/05/17 181 PATIENT NAME: TEE OLIVEIRA SARAH Electrocardiogram DATE OF : 45 PHYSICIAN: TINO RAMIREZ MD REPORT #: [id number] REPORT IS CONFIDENTIAL AND NOT TO BE RELEASED WITHOUT AUTHORIZATION
== END 2017-02-05 02:20 | disposition home or self-care (01) ==
LOC: ED 00:13
DX: R06.00 Dyspnea, unspecified (principal); I48.91 Unspecified atrial fibrillation; Z87.891 Personal history of nicotine dependence; Z79.82 Long term (current) use of aspirin; Z79.899 Other long term (current) drug therapy
CPT/HCPCS: 71010; 80053; 83880; 84484; 85025; 93005; 93010; 99284

== ENCOUNTER 2019-06-22 15:05 | Inpatient (IN) | payer OTHER ==
[~2019-06-22] VITALS: Ht 165.1 cm; Wt 61.7 kg
--- NOTE | 2019-06-22 19:20 | NUR ---
PATIENT ADMITTED TO [facility] FOR AFIB W/RVR. ADMIT DONE WITH SON IN ROOM WHO SPEAKS PATIENT'S LANGUAGE.
--- NOTE | 2019-06-22 19:29 | NUR ---
DILT GTT STARTED AT 10 MG/HR. PT'S SON SOLOMON LEFT AND GIVEN INSTRUCTIONS ON HOW TO CALL AND SPEAK WITH PATIENT. PT ONLY SPEAKS VIATENAMESE. PT WILL BE GIVEN A SANDWICH BOX FOR FOOD HE IS HUNGRY.
--- NOTE | 2019-06-22 19:45 | NUR ---
RECEIVED REPORT AT 1930, FOUND PT RESTLESS IN BED TRASHING AROUND. RR WAS IN THE 40'S HR IN THE 160'S AT THAT TIME. PT SON WAS CALLED BUT HE TOLD HIS SON THAT HE WAS ALRIGHT. PT SPIT UP BLOODY THICK PHLEM, A SMALL AMOUNT. PT NOW IS ON OXY MASK 4L. DILT DRIP WAS INCREASED TO 12.5MG/HR AT THIS TIME.
--- NOTE | 2019-06-22 20:55 | NUR ---
Spoke with Dr. Burton regarding order for nebulizer. States she does not want to aerosolize in patient room and would like MDI Albuterol inhaled q 2-4 hours prn, 2 puffs. States she is having difficulty placing order. Order placed in system by this nurse.
--- NOTE | 2019-06-22 21:38 | NUR ---
AT 2099 DILT DRIP WAS REDUCED TO 10.0MG, AT 2114 IT WAS FURTHER REDUCED TO 7.5MG, AT THAT POINT I DID LEAVE THE ROOM SINCE THE PT DID SETTLE DOWN SOME. AT 2129 BP WAS LOW WITH SBP OF 73 AND HR IN THE 70'S-80'S. PT WAS LAYING ON HIS SIDE WITH HIS ARM BENT. AT 2134 DILT DRIP WAS TURNED OFF DUE TO BP OF 83/60 (65) AND HR IN THE 70'S. PT AT THIS TIME IS RESTING ON 7L OXY MASK, RR 18-20'S, HR 70'S O2 SATS 95%. I HAVE NOT BEEN ABLE TO LISTEN TO PT LUNGS SINCE I HAVE BEEN WEARING A PAPR. I CAN HOWEVER HEAR A FAINT WHEEZE FROM PT. NO PERIPHERAL EDEMA NOTED. WILL CONTINUE TO MONITOR.
--- NOTE | 2019-06-22 22:52 | NUR ---
MD MERCADO WAS CALLED AT 2245 DUE TO HIGH RR, LOW BP'S AND WORK OF BREATHING. PT AT THIS TIME LOOKS CYANOTIC IN THE FACE. CAP REFILL STILL <3SEC, ALL LOBES HAVE CRACKLES PRESENT AT THIS TIME. RECEIVED ORDERS FOR LEVOPHED DRIP, 10MG IV LASIX AND BROWNE. WILL CONTINUE TO MONITOR.
--- NOTE | 2019-06-22 23:42 | NUR ---
DR MERCADO IN TO ASSESS PT. ORDERS RECIEVED (SEE EMAR).
--- NOTE | 2019-06-23 00:30 | NUR ---
NOREPI DRIP TITRATED FROM 4 MCG TO 2MCG. WILL MONITOR BUT MAY HAVE TO INCREASE IT AGAIN. PT NOW IS PRODUCING URINE, WILL TAKE MEASURMENT OF OUTPUT SOON. ANOTHER 2MG IV MORPHINE WERE GIVEN DUE TO RR IN THE UPPER 20'S. RR NOW AROUND 20. UPPER LOBES AND UPPER AIRWAY HAVE EXPIRATORY WHEEZING PRESENT, ALL OTHER LOBES STILL HAVE CRACKLES PRESENT. PT ALSO NOW HAS TRACE BILATERAL UPPER/LOWER ARM EDEMA, NO LEG EDEMA NOTED SO FAR. ABD SOUNDS ARE NOT REALLY HEARD BUT PT HAS HAD A BM EARLIER. WILL CONTINUE TO MONITOR.
--- NOTE | 2019-06-23 00:48 | NUR ---
RR STILL IN THE 20'S WITH SIGNIFICANT WORK OF BREATHING PRESENT. WILL GIVE ANOTHER 2MG IV MORPHINE AT THIS TIME.
--- NOTE | 2019-06-23 02:06 | NUR ---
LEVOPHED DRIP WAS TURNED OFF AT 0200. WILL CONTINUE TO MONITOR. MD MERCADO WAS INFORMED. RR IN THE TEENS, O2 SATS >95% ON 7L O2 OXY MASK. HR LOW 100'S -UPPER ONE TEENS. URINE OUTPUT IS STILL VERY GOOD AT THIS TIME.
--- NOTE | 2019-06-23 03:14 | NUR ---
RR AT THIS TIME IN THE 20'S-30'S, 2MG IV MORPHINE WILL BE GIVEN.
--- NOTE | 2019-06-23 03:25 | NUR ---
DILT DRIP HAS ALSO BEEN STARTED AGAIN DUE TO HR UP TO THE 130'S.
--- NOTE | 2019-06-23 03:48 | NUR ---
AT 0330 DILT DRIP WAS INCREASED TO 7.5MG, AT 0346 IT WAS INCREASED TO 10MG. WILL CONTINUE TO MONITOR.
--- NOTE | 2019-06-23 03:58 | NUR ---
RR NOW AROUND 20 OR SO. LABORED BREATHING STILL PRESENT, STRIDOR HEARD, EXPIRATORY WHEEZING ALSO PRESENT. RLL HAS ALSO RALES PRESENT, PT IS STILL WORKING HARD WITH BREATHING.
--- NOTE | 2019-06-23 04:41 | NUR ---
PT HAS NAV SWITCHED TO NON-REBREATER AT 10L AT THIS TIME. BRATHING IS <20 BUT STILL BERY LABORED. STRIDOR IS HEARD FROM OUTSIDE THE ROOM.
--- NOTE | 2019-06-23 05:27 | NUR ---
DILT DRIP STILL RUNNING AT 7.5MG/HR, URINE OUTPUT IS ADEQUATE BUT BLODDY IN NATURE, PT AT THIS TIME HAS NO STRIDOR HEARD, STILL LABORED BREATHING THOUGH.
--- NOTE | 2019-06-23 06:51 | NUR ---
AT THIS TIME PT SEEMS TO BE RESTING WELL, DILT @ 5MG/HR, V/S WDL OVERALL, URINE OUTPUT HAS BEEN ADEQUATE, PT HAS NO AUDIBLE STRIDOR FORM OUTSIDED THE DOOR.
--- NOTE | 2019-06-23 07:14 | EKG ---
[facility] [address] [facility] [place] [address] Signed Atrial fibrillation with rapid ventricular response ST \T\ T wave abnormality, consider lateral ischemia Abnormal ECG When compared with ECG of 05-FEB-2017 01:08, Atrial fibrillation has replaced Sinus rhythm Vent. rate has increased BY 84 BPM Non-specific change in ST segment in Inferior leads ST now depressed in Lateral leads Nonspecific T wave abnormality now evident in Inferior leads T wave inversion now evident in Lateral leads Confirmed by ALISON MERCADO MD ([id number]) on 06/23/2019 7:14:38 AM Electronically Signed By: ALISON MERCADO MD 06/23/1914 PATIENT NAME: TEE OLIVEIRA SARAH Electrocardiogram DATE OF : 45 PHYSICIAN: ALISON MERCADO MD REPORT #: [id number] REPORT IS CONFIDENTIAL AND NOT TO BE RELEASED WITHOUT AUTHORIZATION
--- NOTE | 2019-06-23 07:15 | EKG ---
[facility] [address] [facility] [place], [place] [address] Signed Atrial fibrillation with rapid ventricular response T wave abnormality, consider lateral ischemia Abnormal ECG When compared with ECG of 22-JUN-2019 15:11, (Unconfirmed) Non-specific change in ST segment in Inferior leads Confirmed by ALISON MERCADO MD ([id number]) on 06/23/2019 7:15:08 AM Electronically Signed By: ALISON MERCADO MD 06/23/19 0715 PATIENT NAME: TEE OLIVEIRA SARAH Electrocardiogram DATE OF : 45 PHYSICIAN: ALISON MERCADO MD REPORT #: [id number] REPORT IS CONFIDENTIAL AND NOT TO BE RELEASED WITHOUT AUTHORIZATION
--- NOTE | 2019-06-23 07:44 | NUR ---
PATIENT SLEEPING AT THIS TIME WITH 10 L NRB AND SP02 IS 97%. PATIENT REMAINS IN AFIB WITH HR IN THE 100-110s, ON A DILT GTT AT 5 MG/HR.
--- NOTE | 2019-06-23 08:28 | NUR ---
IN PATIENT'S ROOM TO PERFORM ASSESSMENT, GIVE MEDS AND VISIT WITH PATIENT. PATIENT'S SON IN LAW CALLED FROM INSIDE ROOM AND DISCUSSED WITH PATIENT HOW HE IS FEELING. AUDIBLE WHEEZES ARE HEARD AT THIS TIME. SP02 IS 93% ON 8 L OXYMASK. PT DENIES TO HIS SON HAVING ANY SHORTNESS OF BREATH OR CHEST PAIN, BUT PATIENT DOES APPEAR TO HAVE AN INCREASED WORK OF BREATHING. SKIN IS DRY AND PINK. PULSES ARE EASILY PALPATED. PT REMAINS ON DILT GTT AT 5 MG/HR. 50 MG PO LOPRESSOR GIVEN. BREAKFAST ORDERED FOR PATIENT. THIS RN TO STAY IN ROOM WITH PATIENT FOR A WHILE
--- NOTE | 2019-06-23 08:42 | NUR ---
BROWNE BAG EMPTIED AT THIS TIME. 800 ML IN ENTIRE BAG - 73 ML IN UROMETER SINCE LAST TIME UROMETER WAS TIPPED.
--- NOTE | 2019-06-23 08:43 | NUR ---
DILT GTT TURNED UP TO 7.5 MG/HR. AUDIBLE WHEEZES CONTINUE WHILE PATIENT IS RESTING.
--- NOTE | 2019-06-23 08:54 | NUR ---
PATIENT SITTING UP IN BED, EATING HIS BREAKFAST. GRISTMILLER BRAD BEING USED TO ATTEMPT TO COMMUNICATE WITH PATIENT. PT EATING HIS TOAST. DR. MERCADO COMING IN TO SEE PATIENT. PATIENT SWITCHED TO NASAL CANNULA AT 5 L, SP02 MAINTAINING >90% AT THIS TIME, CURRENTLY 92%.
[2019-06-23] MEDS ORDERED: METOPROLOL SUCC50 MG PO (09:05)
[2019-06-23] MEDS ORDERED: LEVOTHYROXINE75 MCG PO (09:06)
--- NOTE | 2019-06-23 09:07 | NUR ---
DR. MERCADO IN ROOM AT THIS TIME SEEING PATIENT. DISCUSSING WITH SOLOMON ON PHONE, PATIENT'S SON IN LAW.
--- NOTE | 2019-06-23 09:13 | NUR ---
PATIENT STILL EATING HIS BREAKFAST. WILL CONTINUE TO MONITOR. THIS RN TO LEAVE ROOM FOR A WHILE.
--- NOTE | 2019-06-23 10:33 | NUR ---
PATIENT USES CALL LIGHT AND SIGNALS TO THIS RN BY POINTING AT HIS CUP THAT HE WANTS MORE WATER. WATER BROUGHT INTO ROOM FOR PATIENT. LUNGS AUSCULTATED AND ABLE TO HEAR UPPER AIRWAY, THROAT EVEN, WHEEZE ON EXPIRATION. LUNG SOUNDS ARE CLEAR ANTERIORLY IN UPPER LOBES. FINE CRACKLES AUSCULTATED BILATERAL LOWER LUNGS, AND SOME EXP WHEEZING ALSO HEARD RIGHT MID LUNG POSTERIORLY. MONITORING URINE OUTPUT HOURLY STILL. URINE IS SLIGHTLY BLOODY TINGED.
--- NOTE | 2019-06-23 11:30 | NUR ---
PATIENT UP TO CHAIR AFTER USING AUTOMOTIVE SERVICE CONSULTANT PHONE. PATIENT TOLD THIS RN THROUGH THE AUTOMOTIVE SERVICE CONSULTANT PHONE THAT HE HAS A HARD TIME SITTING IN ONE POSTION AND SITTING STILL, WHICH IS WHAT THE PATIENT'S SON IN LAW ALSO STATED. PATIENT HELPED UP TO CHIR WHLE LINEN BEING CHANGED. PATIENT VERY FRUSTRATED WITH HIS BROWNE CATHETER, WHICH IS DRAINING BLOODY URINE AT THIS TIME. PATIENT POINTING AND PULLING AT IT. CALLED PT'S SON BACK TO TALK WITH APTIENT. PATIENT TOLD HIS SON HE FEELS LIKE HE NEEDS TO VOID, BUT OKAY WITH LEAVING BROWNE IN. HOWEVER AFTER BEING OFF THE PHONE, PATIENT CONTINUES TO PULL AT HIS BROWNE AND INDICATING THROUGH BODY LANGUAGE THAT HE WANTS SOMETHING DIFFERENT THAN THE BROWNE CATHETER TO BE IN. PT BECOMING VERY ANXIOUS, BREATHING FAST, HEART RATE UP AND SP02 DOWN. PT'S SKIN BECOMING MORE AND MORE MOTTLED IN LOWER EXT. PT INDCATING THAT HE IS COLD AGAIN BY SHIVERING AND HAVING ALMOST RIGORS, BUT REMAINS AFEBRILE. WARM BLANKETS PROVIDED. PT DOES FOLLOW PROMPTS WHEN BEING ASKED TO TAKE DEEP BREATHS. OVERALL, PATIENT VERY ANXIOUS. MD CALLED FROM ROOM. ORDER REC'D TO GIVE ALBUTEROL INHALER WHICH WAS GIVEN TO PATIENT. PATIENT STILL ANXIOUS AND SHORT OF BREATH. HIGH INCREASED WORK OF BREATHING. ABG ORDERED. DR. MERCADO OUTSIDE OF ROOM DISCUSSIGN WITH THIS RN PLAN OF CARE.
--- NOTE | 2019-06-23 11:54 | NUR ---
ABG DRAWN AT THIS TIEM. PT GIVEN 4 MG IV MORPHINE AND 1 MG IV ATIVAN TO HELP WITH PATIENT'S SHORTNESS OF BREATH.
--- NOTE | 2019-06-23 12:16 | NUR ---
RT IN ROOM AND PLACING PATIENT ON BIPAP. AFTER DOSE OF ATIVAN, PATIENT FINALLY SETTLING DOWN. STILL HAVING A VERY PRONOUNCED WORK OF BREATHING THAT APPEARS DIFFICULT. ABG RESULTS PENDING. PT PREFERRING TO LAY ON RIGHT SIDE IN BED.
--- NOTE | 2019-06-23 12:24 | NUR ---
SCATTERED RALES AND WHEEZES THROUGHOUT JACINTO CURRENT SETTING WELL WOB MUCH IMPROVED. VIRAL FILTER PLACED AT EXPIRATORY VALVE.
--- NOTE | 2019-06-23 12:58 | NUR ---
DISCUSSED WITH DR. MERCADO PT'S ABG VALUES AND UA. PATIENT WILL HAVE A RENAL ULTRASOUND.
--- NOTE | 2019-06-23 13:10 | NUR ---
PATIENT STILL RESTING AT THIS TIME ON BIPAP, LAYING ON HIS RIGHT SIDE. BIPAP SETTINGS ARE 14/8 AND 50%. SP02 IS 93%. CONTINUE TO MONITOR. PT TO HAVE A RENAL U/S THIS AFTERNOON.
--- NOTE | 2019-06-23 13:30 | NUR ---
ULTRASOUND TECHNITIAN ARRIVED FOR ULTRASOUND. IN ROOM AT THIS TIME.
--- NOTE | 2019-06-23 13:40 | NUR ---
collection technician in room with pt for abdominal ultrasound.
--- NOTE | 2019-06-23 13:55 | NUR ---
ULTRASOUND TECHNITIAN FINISHED WITH SCAN. PT RESTING IN BED. RR = 18, O2 OF 95%. NO AGITATION NOTED. BED RAILS UP. CALL LIGHT WITHIN REACH.
--- NOTE | 2019-06-23 14:00 | NUR ---
Pt having proceedure in room at my visit. Will call family for info for assessment. Attempted to call, phone is restricted at this time. Will try to speak with pt. tomorrow. Per RN pt has metabolic acidosis, on Bipap and has increased sob.
[2019-06-23] MEDS ORDERED: MULTI VITAMIN1 EACH PO (14:07)
--- NOTE | 2019-06-23 14:08 | NUR ---
MED REC COMPLETE
--- NOTE | 2019-06-23 14:21 | NUR ---
PT ON PRECAUTIONS, UNABLE TO VISIT STAFF IN RM
--- NOTE | 2019-06-23 14:30 | NUR ---
PULSE OX ALAING, THIS RN TO ROOM. PULSE OX WRAPPED AROUND PTS LEFT ARM. PT AWAKENS TO TOUCH AND REMOVES MASK FROM FACE. PULSE OX REAPPLIED. BIPAP MASK REAPPLIED. FIO2 DECREASED TO 45% PER MAUREEN FROM RT. PT SETTLES DOWN. PILLOWS AND BLANKETS PLACED AT PRESSURE POINTS. O2 AT 98%. RR = 16. BED RAILS UP. CALL LIGHT WITHIN REACH.
--- NOTE | 2019-06-23 15:43 | NUR ---
THIS RN IN ROOM TO EVALUATE PATIENT. PT REMAINS SLEEPING, WITH BIPAP ON. SP02 IS 99% ON 45% FI02 AND THIS TURNED DOWN TO 40% AT THIS TIME. RR IS 16. BIPAP SETTINGS REMAINS 14/8. PT IS YET TO VOID AFTER HAVING BROWNE CATH REMOVED. HR IN THE 90-LOW 100s, REMAINS AFIB. DILT GTT INFUSING AT 5 MG/HR. WILL CONTINUE TO MONITOR.
--- NOTE | 2019-06-23 15:53 | NUR ---
PATIENT BLADDER SCANNED FOR 67 ML OF URINE IN HIS BLADDER. BROWNE WAS D/C AT 1145. DR. MERCADO TO BE NOTIFIED.
--- NOTE | 2019-06-23 17:15 | NUR ---
IN ROOM AT THIS TIME TO DRAW BLOOD, GIVE PM MEDS. PT STILL RESTING ON BIPAP. PT AWAKENS WHEN BLOOD DRAWN BUT FALLS BACK ASLEEP AGAIN AFTER WARDS. SP02 IS 94% ON 4O% FI02 AT THIS TIME. CBG 104 - NO INSULIN NEEDED. PT STILL HAS NOT VOIDED. BLADDER SCANNED LAST FOR [address] MERCADO AWARE AND OKAY WITH PATIENT BEING ON THE DRY SIDE AT THIS TIME. ENCOURAGING PO INTAKE.
--- NOTE | 2019-06-23 17:39 | NUR ---
PATIENT TAKEN OFF BIPAP FOR A LITTLE WHITE. PATIENT PLACED ON 4 L NC AND CURRENTLY SP02 IS 92% ON 4 L. PT DRINKS SOME WATER. PT DENIES WANTING ANYTHIGN ELSE TO EAT OR DRINK AT THIS TIME. PT'S SON IN [place] CALLED AND TALKED WITH HIM FOR A FEW MOMENTS.
--- NOTE | 2019-06-23 19:08 | NUR ---
PATIENT MORE AWAKE AT THIS TIME AND WATCHING TV. PT PULLING HIS BIPAP OFF AND USING THE CALL LIGHT A PHONE. HR UP TO THE 120-130s WHILE RESTING IN BED. PT STILL HASN'T VOIDED SINCE HOLLIE WAS D/C. AWARE. PT REPOSITIONING FACEMASK ON FACE TO SCRATCH UNDER MASK. SP02 NOW 94% ON 40% FI02.
--- NOTE | 2019-06-23 19:19 | NUR ---
DILT GTT TURNED UP TO 7.5 MG/HR AND 2100 DOSE OF LOPRESSOR GIVEN EARLY. PT RESTING WATCHING TV.
--- NOTE | 2019-06-23 20:00 | NUR ---
RECEIVED REPORT AT 1900, PT AT THAT TIME WAS SLEEPING IN BED. HR SUDDENLY JUMPED UP AND LOPRESSOR WAS GIVEN, DILT DRIP WAS INCREASED TO 7.5. PT NOW HAS TEMP OF 100.8 F. PRN TYLENOL WAS GIVEN. PT ALSO PULLED HIS IV, A NEW ONE WAS STARTED. UPPER LOBES HAVE EXPIRATORY WHEEZING PRESENT, ALL OTHER LOBES HAVE CRACKLES PRESENT WITH EXP. WHEEZING. PT HAS INCREASED GENERAL BILATERAL ARM EDEMA PRESENT, STILL NO EDEMA LOWER LEGS ABDOMEN IS FIRM TO TOUCH NOW AND SLIGHTLY MORE DISTENDED THAN LAST NIGHT. PT IS STILL DUE TO VOID, MD MERCADO IS AWARE. WILL CONTINUE TO MONITOR.
--- NOTE | 2019-06-23 21:23 | NUR ---
pt BP 91/56 (65) HR 97-100S IRREGULAR. DILTIAZEM DRIP TITRATED TO 5 MG/HR AT THIS TIME. RN IN ROOM, pt OFFERED URINAL, NO VOID NOTED AT THIS TIME. BIPAP MASK ADJUSTED, SPO2 96% ON BIPAP. RR 22. pt APPEARS RELAXED, BREATHING NON-LABORED. EYES CLOSED.
--- NOTE | 2019-06-23 21:40 | NUR ---
pt PULLING AT BIPAP MASK. DRINKS OF WATER PROVIDED. BIPAP BACK IN PLACE. pt RELAXED, EYES CLOSED.
--- NOTE | 2019-06-23 23:33 | NUR ---
BLOOD CULTURES SENT TO LAB. ASSESSMENT COMPLETE. CRACKLES AUSCULTATED BILATERALLY LOWER LOBES. BIPAP IN PLACE. 100 ML PO INTAKE. pt DENIES NEED TO VOID, URINAL IN REACH. IVF INFUSING WNL ORDERED. DILTIAZEM DRIP INFUSING AT 5 MG/HR WNL. VSS. AFEBRILE. CALL LIGHT IN REACH.
--- NOTE | 2019-06-24 01:08 | NUR ---
pt RESTING IN BED WITH EYES CLOSED. RR 18. BIPAP ON. SPO2 96%.
--- NOTE | 2019-06-24 02:05 | NUR ---
PT AT THIS TIME STILL HAS NOT VOIDED. WHEN SHOWN THE URINAL, PT DENIES NEEDING IT. BLADDER SCAN SHOWED >400MLS URINE PRESENT. PT ALSO AT THIS TIME IS NOT ALERT EARLIER. WILL CONTINUE TO MONITOR. ALSO WILL CALL MD MERCADO IN REGARDS TO VOIDING ISSUE.
--- NOTE | 2019-06-24 02:09 | NUR ---
PHONE CALL TO MD, UPDATED ON pt UNABLE TO VOID, BLADDER SCAN >400. TELEPHONE ORDER TO STRAIGHT CATH pt AT THIS TIME, REPEATED BACK.
--- NOTE | 2019-06-24 02:15 | NUR ---
DILT DRIP INCREASED TO 7.5MG/HR DUE TO INCREASING HR.
--- NOTE | 2019-06-24 02:22 | NUR ---
STRAIGHT CATH WAS ORDERED BY MD MERCADO. 500MLS OF KAM URINE WAS DRAINED.
--- NOTE | 2019-06-24 03:55 | NUR ---
DILT DRIP INCREASED TO 10.0MG/HR DUE TO INCREASING HR. PT IS SLEEPING
--- NOTE | 2019-06-24 05:37 | NUR ---
pt AWAKENS TO VOICE, BIPAP ON. 350 MLS PO WATER INTAKE PROVIDED. pt UNABLE TO VOID AT THIS TIME, URINAL PROVIDED. ASSESSMENT COMPLETE. WHEEZES HEARD THROUGHOUT ALL LOBES, IMPROVEMENT NOTED WITH PRN ALBUTEROL INHALER. CRACKLES BILATERALLY LOWER LOBES. TACHYPNIC WITH 9L NON-REBREATHER MASK. BIPAP REAPPLIED. AFEBRILE. DILTIAZEM DRIP TITRATED PER ORDERS TO 15 MG/HR. IV FLUSHED WNL. HR REMAINS IRREGULAR, 97-120S ON HEART MONITOR. pt REPOSITIONED, RESTING WITH EYES CLOSED.
--- NOTE | 2019-06-24 07:58 | NUR ---
THIS RN IN ROOM WITH DR. MERCADO TO ASSESS PATIENT. PATIENT TAKEN OFF BIPAP AND PLACED ON 4 L NC. SP02 94% ON 4 L NC. PT'S SON CALLED AND DISCUSSED PLAN OF CARE WITH HIM. HE TALKS WITH PATIENT AND PATIENT REPORTS TO HIS SON THAT HE HAD A GOOD NIGHT, HE SLEPT WELL, AND HE FEELS BETTER THAN HE DID YESTERDAY. LUNGS TO BE AUSCULTATED WITH BLUETOOTH STETHOPSCOPE. BREAKFAST ORDERED FOR PATIENT. PATIENT APPEARS COMFORTABLE LAYING IN BED, AND DOES NOT APPEAR SHORT OF BREATH OR LABORED BREATHING AT THE MOMENT. HR RANGING 110-130S AT THIS TIME, AFIB. MONITORING CLOSELY.
--- NOTE | 2019-06-24 08:15 | NUR ---
LUNGS AUSCULTATED WITH BLUETOOTH STETHOSCOPE. PT ABLE TO TAKE HIS AM MEDICATIONS. PT SITTING UP IN BED. PT REMAINS ON 4 L NC. WILL CONTINUE TO MONITOR.
--- NOTE | 2019-06-24 08:20 | NUR ---
PATIENT EATING BREAKFAST AT THIS TIME.
--- NOTE | 2019-06-24 08:28 | NUR ---
DILT GTT REMAINS INFUSING AT 15 MG/HR. LR INFUSING AT 75 ML/HR.
--- NOTE | 2019-06-24 08:40 | NUR ---
PATIENT ATE ALL OF HIS BREAKFAST. NOW RESRTING ON 4 L NC. WILL CONTINUE TO MONITOR.
--- NOTE | 2019-06-24 08:54 | NUR ---
DILT GTT TURNED DOWN TO 12.5 MG/HR AT THIS TIME. LAST BP 100/74 AND HR HAS BEEN BELOW 100 NOW SINCE AROUND 0830. PT RESTING IN BED ON 4 L NC. THIS RN TO LEAVE ROOM FOR A WHILE. CALL LIGHT WITHINR EACH.
--- NOTE | 2019-06-24 09:31 | NUR ---
PATIENT USES CALL LIGHT AND POINTS TO THE BATHROOM. PAPR ON AND IN ROOM TO HELP PATIENT. PATIENT TRYING TO VOID NOW IN URINAL. HR IN THE 80s. SP02 IS 91% ON 4 L NC. LAST BP 106/77. DILT GTT REMAINS 12. 5 MG/HR.
--- NOTE | 2019-06-24 09:48 | NUR ---
PT VOIDED 325 ML TEA COLORED URINE. PT POINTING TO HIS SHOULDER AND GRIMACING. 650 MG TYLENOL GIVEN. PT STILL LOOKING UNCOMFORTABLE. MANAGER SALES TRAINING PHONE LINE USED AND PATIENT ABLE TO STATE THAT HIS SHOULDER IS HURTING, AND HE DOESN'T KNOW WHY, BUT OTHERWISE HE IS OKAY. PT ASK MANAGER SALES TRAINING, "IS MY CONDITION DANGEROUS?" DISCUSSED CARE PLAN WITH CHANDLER WHILE ON PHONE. NO FURTHER NEEDS. WARM PACK BEING PROVIDED FOR PATIENT.
--- NOTE | 2019-06-24 09:50 | NUR ---
HUMIDITY ADDED TO OXYGEN. PT NOT WANTING TO WEAR THE BIPAP AT THIS TIME. WARM PACK ON RIGH SHOULDER. CONTINUE TO MONITOR.
--- NOTE | 2019-06-24 10:20 | NUR ---
PATIENT USES CALL LIGHT AND POINTS TO HIS SHOULDER. RN IN ROOM TO HELP PATIENT. WARM PACK RE APPLIED TO SHOULDER. DR. MERCADO AWARE AND ORDER REC'D TO GET A CHEST XRAY. PT'S SON IN LAW CALLED AND TALKED WITH HIM REGARDING HIS SHOULDER PAIN. WILL CONTINUE TO MONITOR.
--- NOTE | 2019-06-24 11:00 | NUR ---
CHEST XRAY TAKEN AND RESULTS PENDING. PT TOLERATED WELL.
--- NOTE | 2019-06-24 12:25 | NUR ---
ATE LUNCH WELL. DENEIS PROBLEMS.
--- NOTE | 2019-06-24 12:52 | NUR ---
PT IS STILL ON PRECAUTIONS, I ALSO UNDERSTAND THAT AN STORE TEAM MEMBER IS NEEEDED
--- NOTE | 2019-06-24 12:52 | NUR ---
THIS RN IN ROOM FOR ASSESSMENT AND VITALS. PT'S FOOD BROUGHT INTO ROOM. BED LINEN TO BE CHANGED. PT HELPED UP TO CHAIR FOR LUNCH. LUNGS LISTENED TO AND REVEAL FINE CRACKLES IN BOTH BASES WITH SOME EXP WHEEZES HEARD. PT DUE TO VOID AGAIN.
--- NOTE | 2019-06-24 13:00 | NUR ---
Called and spoke with pt's son as pt speaks [place]. Pt is in isolation and unable to speak with me at this time. Called and spoke with Ariza. He states his father is retired and immigrated from [place] 5 years ago. He lives with Ariza and his family. Sharyn does not use any DME. He does not have issues with walking or problems walking few steps into the house. They do not have financial concerns. Plan for dad to return to their home on discharge and they will assist pt with any needs.
--- NOTE | 2019-06-24 13:10 | NUR ---
PT SITTING UP IN CHAIR EATING LUNCH. TOLERATING WELL. ORAL CARDIZEM GIVEN, SEE EMAR. PT TO BE GIVEN BED BATH ONCE BACK IN BED. CONTINUE TO MONITOR. DILT GTT AT 10 MG/HR - WILL BE TITRATED DOWN AND OFF SOON SINCE ORAL CARDIZEM HAS BEEN GIVEN.
--- NOTE | 2019-06-24 13:46 | NUR ---
PATIENT USES CALL LIGHT AND POINTS TO THE BED. INTO ROOM TO HELP PATIENT. PT VOIDS 275 KAM COLORED URINE. PT HELPED BACK TO BED. PT REMAINS ON 4 L NC. HR 80-90s AFIB. DILT GTT TURNED DOWN TO 7.5 MG/HR. BED BATH PROVIDED AND NEW GOWN. PT TOLERATED WELL.
--- NOTE | 2019-06-24 14:12 | NUR ---
PT USES CALL LIGHT AND POINTS TO HIS THROAT HE IS COUGHING. PT ABLE TO COUGH UP SOME THICK, BLOODY TINGED MUCUOS. PT'S SON CALLED TO TALK WITH HIM AND PATIENT AGAIN TELL HIS SON HIS IS OKAY, BUT JUST WANTED TO LET THE NURSE KNOW THAT HE WAS COUGHING UP SOME SPUTUM. WILL ATTEMPT TO PUT BIPAP BACK ON WHILE PT RESTING.
--- NOTE | 2019-06-24 14:14 | NUR ---
BIPAP BACK ON AT THIS TIME. SETTING ARE 14/8 AND 40%. SP02 IS 96%. WILL STAY IN ROOM FOR A FEW MINUTES TO MAKE SURE PATIENT TOLERATES BIPAP OKAY.
--- NOTE | 2019-06-24 16:06 | NUR ---
PT USING CALL LIGHT AND INDICATING THAT HE NEEDS TO VOID. THIS RN IN ROOM.
--- NOTE | 2019-06-24 16:23 | NUR ---
DINNER ORDERED FOR PATIENT. PATIENT'S SON CALLED AND DISCUSSED WITH HIM AND PATIENT. PATIENT WANTS TO HAVE SALMON AGAIN FOR DINNER. PT USING CALL LIGHT APPROPRIATELY. DILT INFUSING AT 5 MG./HR. CONTINUE TO MONITOR.
--- NOTE | 2019-06-24 17:32 | NUR ---
IN ROOM TO GIVE PATIENT HIS DINNER. PT ABLE TO SCOOT HIMSELF UP AND IS EATING. PT OFF BIPAP AN DON 4 L NC. DILT GTT REMAINS AT 5 MG/HR AND LR AT 75 ML/HR. URINE OUTPUT HAS IMPROVED TODAY, COLOR IS NOW YELLOW. PT APPEARS COMFORTABLE, RESTING IN BED AND NO INCREASED WORK OF BREATHING. PT INDICATES THAT HE WANTS TO USE HIS INHALER BY POINTING AT IT. WILL CONTINUE TO MONITOR.
--- NOTE | 2019-06-24 17:42 | NUR ---
HUMIDIFICATION ADDED TO PATIENT'S OXYGEN EARLIER TODAY TO HELP PREVENT HIS NOSE FROM BEING TOO DRY. PT BLOWING HIS NOSE SOME. PT STILL HAVING A COUGH TODAY AND STARTING TO BECOME PRODUCTIVE. LILIANE GTT PLACED ON STANDBY AT THIS TIME AND WILL CONTINUE TO MONITOR HR CLOSELY.
--- NOTE | 2019-06-24 18:18 | NUR ---
DISCUSSED WITH DR. MERCADO PLAN OF CARE. AM LABS TO BE ORDERED. PT COUGHING AND POINTING TO HIS THROAT AND SIGNALING THAT HE WANTS TO USE HIS INHALER. NEB TX ORDERED PER DR. MERCADO. THIS RN GIVING PATIENT HIS NEB. LUNGS AUSCULTATED AND CRACKLES HEARD IN LUNGS BUT ALSO DIMINISHED IN LOWER LUNGS. PT REMAINS ON 4 L NC. PT SITTING ON EDGE OF BED WITH NEB TX.
--- NOTE | 2019-06-24 18:44 | NUR ---
PATIENT POINTING TO HIS THROAT AGAIN AND APPEARING VERY UNCOMFORTABLE. GREENHOUSE LABORER SERVICES USED AND DISCUSSED THIS WITH PATIENT. PATIENT EXPRESSES THAT HE HAS A WEIRD ITCHY FEELING IN HIS THROAT, AND THAT HE HAS TROUBLE BREATHING AT NIGHT. EXPLAINED TO PATIENT THAT HE SHOULD BE WEARING THE BIPAP TONIGHT. PT AGREEABLE. PT ALSO EXPRESSES HIS CONCERN FOR HIS DISCHARGE, ASKING IF HE WILL EVER GET OUT OF THE HOSPTIAL. PT ALSO ASKING IF HE NEEDS SURGERY. EDUCATED PATIENT MUCH POSSIBLE. PT STATES, " I WANT THE DOCTOR TO HELP ME WITH MY BREATHING." EXPLAINED TO PATIENT WHAT WE ARE CURRENTLY DOING WITH THE BIPAP, NEB TX, AND ANTIBIOTICS TO HELP HIM WITH HIS BREATHING. PT UNDERSTANDABLE AFTER THIS IT SEEMS. PT TOLD HE CAN SIT UP AT EDGE OF BED BY HIMSELF, BUT ASKED HIM NOT TO GET UP ON HIS OWN FOR HIS SAFETY. PT AGREEABLE. BACK IN BED NOW WITH BIPAP ON AND WARM BLANKETS PROVIDED. SP02 IS 99% ON 40% FI02 AND 14/8. REPORT TO TEMPLATE FITTER SOON.
--- NOTE | 2019-06-24 20:45 | NUR ---
CALL LIGHT ANSWERED. SBA TO BSC FOR BM AND UNMEASURED VOID. pt TOLERATED WELL, SPO2 WNL ON 4L HUMIDIFIED OXYGEN BY MN. ORAL CARE PROVIDED. PHONE TRANSLATION SERVICES UTILIZED. pt DENIES PAIN, DENIES SOB AT THIS TIME. QUESTIONS ANSWERED REGARDING PENDING TEST RESULTS. pt QUESTIONING THYROID MEDICATION. WARM BLANKETS PROVIDED. pt OVERALL EDEMETOUS BUE, BLE, ABDOMEN, SKIN TIGHT. IV SITES FLUSHED WNL. BIPAP APPLIED AT THIS TIME. VSS. AFEBRILE. CALL LIGHT IN REACH.
--- NOTE | 2019-06-24 21:08 | NUR ---
PHONE CALL TO MD, UPDATED ON STATUS, pt OFF DILTIAZEM DRIP, EDEMETOUS. TELEPHONE ORDER REPEATED BACK, EMAR UPDATED.
--- NOTE | 2019-06-24 21:54 | NUR ---
pt UP TO SIDE OF BED INDEPENDENTLY FOR VOID AND BACK IN BED. pt WITH TROUBLE REAPPLYING BIPAP MASK. RN IN ROOM. ORDERED LASIX ADMINISTERED WNL, IV SITE SL ORDERED. pt REQUESTING PRN BREATHING TREATMENT, PRN NEB TREATMENT ADMINISTERED, 4L HUMIDIFIED OXYGEN IN PLACE, SATURATIONS WNL. BIPAP BACK IN PLACE PER pt REQUEST. CALL LIGHT IN REACH.
--- NOTE | 2019-06-24 22:29 | NUR ---
pt UP TO SIDE OF BED X 2 FOR VOIDS. ASSISTED TO REPOSITION IN BED. BIPAP IN PLACE. pt CLOSING EYES. CALL LIGHT IN REACH.
--- NOTE | 2019-06-24 23:47 | NUR ---
pt REMOVING BIPAP, SATURATIONS 87% ON RA. BIPAP REAPPLIED, RR 20. 625 ML VOID NOTED, URINAL EMPTIED. ASSESSMENT COMPLETE. pt RESTING IN BED, BREATHING UNLABORED. TRACE EDEMA GENERALIZED AT THIS TIME, IMPROVEMENT FROM START OF SHIFT. DILTIAZEM GTT STARTED PER MD VERBAL ORDER, pt TACHYCARDIC, HR RANGING FROM 97-130S, AFIB. AFEBRILE. THIS RN REMAINS IN ROOM FOR GTT TITRATION ORDERED.
--- NOTE | 2019-06-25 00:08 | NUR ---
pt REQUESTING BREAK FROM BIPAP AT THIS TIME, 4L HUMIDIFIED OXYGEN APPLIED. SPO2 94%.
--- NOTE | 2019-06-25 00:20 | NUR ---
DILTIAZEM GTT TITRATED PER ORDERS TO 15 MG/HR. RN IN ROOM. pt RESTING IN BED WITH EYES CLOSED, 4L OXYGEN BY NC IN PLACE, RR 22. NO RESP DISTRESS NOTED.
--- NOTE | 2019-06-25 00:34 | NUR ---
BIPAP IN PLACE. SPO2 95%. HR REMAINS TACHYCARDIC, AFIB RATES 100-132 BPM. pt RESTING IN BED WITH EYES CLOSED.
--- NOTE | 2019-06-25 00:56 | NUR ---
pt UP TO SIDE OF BED FOR CLEAR YELLOW 160 ML VOID. pt BACK IN BED, WARM BLANKETS PROVIDED. BIPAP ON, SPO2 95%. DILTIAZEM GTT INFUSING WNL AT 15 MG/HR.
--- NOTE | 2019-06-25 01:40 | NUR ---
pt APPEARS ANXIOUS, PULLING OFF BIPAP, SHIFTING IN BED. PRN MORPHINE ADMINISTERED. DILTIAZEM DRIP TITRATED PER ORDERS TO 17.5 MG/HR. pt RESTING IN BED WITH BIPAP ON. RN IN ROOM.
--- NOTE | 2019-06-25 02:46 | NUR ---
pt removed bipap to void. heart rate up to 166, O2 saturations down into the 80s. back in bed on bipap. prn morphine given for shortness of breath ( see emar).
--- NOTE | 2019-06-25 03:12 | NUR ---
NEW BAG DILTIAZEM INFUSING LEFT FOERARM WNL AT 17.5 MG/HR. pt RESTING IN BED WITH BIPAP ON, SPO2 WNL, EYES CLOSED, NO RESPIRATORY DISTRESS NOTED.
--- NOTE | 2019-06-25 03:40 | NUR ---
pt UP TO SIDE OF BED INDEPENDENTLY. BIPAP REAPPLIED BY pt. RESTING IN BED, APPEARS RELAXED. ARMS RESTING BEHIND HEAD, APPEARS TO BE WATCHING TV.
--- NOTE | 2019-06-25 04:57 | NUR ---
pt AWAKENS TO VOICE. PHONE INTERPRETIVE SERVICES UTILIZED. pt ORIENTED TO LOCATION, REORIENTATION TO EVENT/REASON FOR HOSPITALIZATION. pt STATES "HERE FOR THYROID FOLLOW UP". pt DENIES PAIN, DENIES SOB. COOPERATIVE WITH PLAN OF CARE. pt STATES HE'S HUNGRY. SNACK PROVIDED AND ICE WATER PROVIDED, INFORMED OF BREAKFAST TIMES. SPO2 94% ON 4L OXYGEN BY NC. LABS DRAWN BY RN. TRACE EDEMA THROUGHOUT BODY, IMPROVED FROM START OF SHIFT. pt WITH OCCASIONAL DRY COUGH. BIPAP BACK IN PLACE, SPO2 97%. CALL LIGHT IN REACH.
--- NOTE | 2019-06-25 05:48 | NUR ---
pt REQUESTING BREAK FROM BIPAP AT THIS TIME, MOTIONING FOR MASK TO BE REMOVED. 4L OXYGEN BY NC APPLIED, SPO2 WNL. pt CLOSING EYES, RR 20, NO RESPIRATORY DISTRESS NOTED.
--- NOTE | 2019-06-25 07:30 | NUR ---
PATIENT SHIFT REPORT RECIEVED FROM AIRCRAFT ENGINEER. PATIENT RESTING IN BED AT THIS TIME. WILL CONTINUE TO CLOSELY MONITOR.
--- NOTE | 2019-06-25 09:30 | NUR ---
PATIENT ASSESSMENT COMPLETED. CALLED AND SPOKE WITH PATIENTS SON-IN-LAW AND THE INTERPRETIVE SERVICE THIS AM. PATIENT DENIES SOB PATIENT WEARING 4L NASAL CANNUAL. MEDICATIONS GIVEN. USED THE EKO BLUETOOTH STETHASCOPE THIS AM TO LISTEN TO PATIENTS BREATH SOUNDS DUE TO STAFF HAVING TO WEAR PAPR FOR COVID RULEOUT PROTECTION. PATIENT STATES "I FEEL FINE, WHEN DO I GO HOME" ORIENTED PATIENT TO SITUATION AND PLAN OF CARE. PATIENT AGREEABLE TO PLAN. NO OTHER NEEDS AT THIS TIME. WILL CONTINUE TO CLOSELY MONTIOR.
--- NOTE | 2019-06-25 10:30 | NUR ---
THIS RN IN TO ASSIST PATIENT WITH BIPAP. PATIENT TRYING TO PUT BIPAP ON. PLACED ON BIPAP AND PATIENT NOW TALKING A NAP. FRESH WATER AT THE BEDSIDE. NO OTHER OTHER ISSUES AT THIS TIME. WILL CONTINUE TO CLOSELY MONITOR.
--- NOTE | 2019-06-25 12:54 | NUR ---
IN TO SEE PATIENT. CALLED AND SPOKE WITH INTERPRETOR SERVICE TO TALK WITH PATIENT. PATIENT DENIES ANY SOB. PATIENT PLACED ON 3L NASAL CANNULA AND TOLERATESD WELL. ENCOURAGED PATIENT TO WEAR NASAL CANNULA THE REST OF THE AFTERNOON UNLESS HE BECOMES SOB. PATIENT DENEIS WANTING LUNCH STATES "I DONT LIKE YOUR FOOD". PATIENT TOLD FAMILY AND INTERPRETUR THIS INFORMATION. PATIENT REQUESTS VANILLA ENSURE. TWO ENSURES A THE BEDSIDE. ICE WATER REFRESHED. PATIENT DENIES ANY OTHER NEEDS AT THIS TIME. WILL CONTINUE TO CLOSELY MONITOR.
--- NOTE | 2019-06-25 14:30 | NUR ---
PATIENT RESTING IN BED AT THIS TIME. PATIENT ON 3L NC AND TOLERATING WELL WITH SPO2 95%. WILL CONTINUE TO TITRATE PATIENTS SPO2 APPROPRIATE. NO OTHER NEEDS AT THIS TIME. WILL CONTINUE TO CLOSELY MONTIOR.
--- NOTE | 2019-06-25 16:16 | NUR ---
Update from Rn. Pt feeling better. 0 sob at rest, 3l 02. Used bipap during the night. Will follow up tomorrow and check on pt.
--- NOTE | 2019-06-25 16:30 | NUR ---
Patient laying in bed with 3LNC in place, SpO2 of 94%. IV abx hung at 200 mls/hr with PO abx as well. Interpretive services used to communicate with patient. Water refreshed, patient denies further needs at this time. Call light within reach.
--- NOTE | 2019-06-25 18:30 | NUR ---
PATIENT RESTING AT EDGE OF BED EATING HIS DINNER. PATIENT ON 2L NC WITH SPO2 95%. NO OTHER NEEDS AT THIS TIME. WILL CONTINUE TO CLOSELY MONITOR.
--- NOTE | 2019-06-25 19:10 | NUR ---
RECEIVED REPORT ON PT, HE IS RESTING IN BED AT THIS TIME WITH EYES CLOSED, RR IS EVEN AND NONLABORED. CALL LIGHT IS CLOSE.
--- NOTE | 2019-06-25 20:50 | NUR ---
USED THE LANGUAGE LINE TO COMMUNICATE WITH PT. HE DENIES SOB AND DENIES SPUTUM WITH COUGH. HIS TEMP WAS 99.2 AND PT WANTED TEMP IN ROOM INCREASED ADVISED HIM TO USE IS AND KEEP ROOM AT CURRENT TEMP TO KEEP TEMP DOWN. PT DENIES NEED FOR ANXIETY MEDS. HE STATES HE HAS SOME NAUSEA BUT DENIES THE NEED FOR MEDICATION. EMPTIED PT'S URINAL. SEE EMAR FOR REMAINDER OF PT'S ASSESSMENT. CALL LIGHT IS CLOSE AND PT DENIES FURTHER NEEDS.
--- NOTE | 2019-06-25 22:03 | NUR ---
PLACED BIPAP ON PT, AND FRESH WATER IS AT BEDSIDE. PT DENIES NEEDS AT THIS TIME, CALL LIGHT IS CLOSE.
--- NOTE | 2019-06-25 22:32 | NUR ---
PT REMOVED BIPAP AND WAS RESTING IN BED WITH EYES CLOSED. HE WAS DOING GOOD ON RA BEFORE WEARING THE BIPAP BUT WHILE SLEEPING HE DROPPED TO 88-89%. PLACED HIM ON 1LNC HE IS NOW IN THE LOW 90'S SPO2. HE IS RESTING WITH EYES CLOSED, RR IS EVEN AND NONLABORED. CALL LIGHT IS CLOSE.
--- NOTE | 2019-06-26 00:26 | NUR ---
PT IS RESTING WITH EYES CLOSED, RR IS EVEN AND NONLABORED ON 1LNC AT 94%. CALL LIGHT IS CLOSE.
--- NOTE | 2019-06-26 01:40 | NUR ---
PT IS RESTING WITH EYES CLOSED, RR IS EVEN AND NONLABORED. CALL LIGHT IS CLOSE.
--- NOTE | 2019-06-26 02:53 | NUR ---
PT IS RESTING WITH EYES CLOSED, HR IS IRREGULAR BETWEEN 96-111 AT THIS TIME. RR IS 17 94% ON L1NC. CALL LIGHT IS CLOSE. .
--- NOTE | 2019-06-26 04:01 | NUR ---
PT IS RESTING WITH EYES CLOSED, RR IS EVEN AND NONLABORED ON 1LNC. CALL LIGHT IS CLOSE.
--- NOTE | 2019-06-26 04:55 | NUR ---
PT REMOVED BP CUFF AND O2. O2 IS ABOVE 90% ON RA AT THIS TIME. IV IN RT AC WAS LEAKING AND PT FLINCHED, NO BLOOD RETURN NOTED. DC'D IV AND PT TOLERATED WELL GAUZE AND COBAN APPLIED. CATH TIP WAS INTACT. SEE ASSESSMENT, PT DENIES NEEDS AT THIS TIME. [facility]MP[facility]. CALL LIGHT IS CLOSE.
--- NOTE | 2019-06-26 06:10 | NUR ---
PT'S HEART RATE JUMPED UP TO 150 THEN BACK DOWN TO 130'S AND IS NOW BACK AT 100-110. PT WAS MOVING IN BED. WILL CONTINUE TO MONITOR.
--- NOTE | 2019-06-26 06:12 | NUR ---
PT SLEPT PRETTY GOOD LAST NIGHT. HE STARTED OFF ON RA THEN TRIED BIPAP FOR ABOUT 40 MINUTES. PLACED HIM ON 1LNC FOR MOST OF THE NIGHT TO MAKE SURE HIS O2 STAYED ABOVE 90%. BY THIS AM HE REMOVED IT AND IS DOING GOOD ON RA. HR HAS STAYED 90-120 MOST OF THE NIGHT WITH A BRIEF INCREASE TO 150 WHICH RESOLVED ON IT'S OWN. RR FLUCTUATES IN THE LOW 20'S MOST OF THE TIME. PT DENIES PAIN AND SOB. HE CONTINUES TO HAVE A COUGH. HE USES THE URINAL AT BEDSIDE AND CALLS APPROPIRATELY. PHONE FOR LANGUAGE LINE IS IN THE ROOM.
--- NOTE | 2019-06-26 08:53 | NUR ---
PT IS ALERT, SITTING UP ON EDGE OF BED, PHONE CONSUMER SERVICES ADVISOR USED TO FACILITATE COMMUNICATION IN [place], DENIES PAIN OR ANY CONERNS, NEEDS, BREAKFAST ORDERED. CALL LIGHT IN EASY REACH AND AGAIN REINFORCED USE IF HE NEEDS IT. MAINTAINING ISOLATION PENDING COVID RESULTS.
--- NOTE | 2019-06-26 09:23 | NUR ---
DR MERCADO IN ROOM TO SEE PATIENT.
--- NOTE | 2019-06-26 09:55 | NUR ---
PT ATE 75% OF BREAKFAST, TAKING PO FLUIDS WELL, GOOD URINE OUTPUT, NO RESP DISTRESS, OCCASIONAL LOOSE COUGH, CLEARING EASILY, REMAINS AFEBRILE. RESTING ON BED, CALL LIGHT IN EASY REACH.
--- NOTE | 2019-06-26 10:30 | NUR ---
Follow up with Rn's. Pt had a better night. Used bipap last night. Hungry and asking for steak for breakfast.
--- NOTE | 2019-06-26 12:40 | NUR ---
PT IS IN GOOD SPIRITS, ATE 90% OF LUNCH, TAKING PO FLUIDS WELL, VOIDING WELL, DOING WELL ON ROOM AIR. WILL TRANSFER TO [facility] FLOOR AT THIS TIME.
--- NOTE | 2019-06-26 12:41 | NUR ---
PT STILL IN PRECAUTIONS.
--- NOTE | 2019-06-26 13:25 | NUR ---
PT TRANSFERRED FROM CCU TO [facility] RM 121 VIA WC, PHONE DOUGHNUT DOUGH MIXER USED TO COMMUNICATE MOVE AND EDUCATION ABOUT CONDITION. PT STATED HE UNDERSTOOD AND HAD NO QUESTIONS, ALL PERSONAL BELONGINGS TRANSFERRED WITH PT. REPORT GIVEN TO KASSY IN ROOM.
--- NOTE | 2019-06-26 13:30 | NUR ---
PT ARRIVED VIA WHEELCHAIR FROM CCU. PT UNABLE TO SPEAK ITALIAN BUT PT IS ABLE TO GIVE THUMBS UP IF HE IS OKAY. PT GAVE THIS NURSE A THUMBS UP UPON ARRIVAL. USED PHONE AUTO PARTS PROFESSIONAL TO DISCUSS WITH PT THAT HE IS TRANSFERRED TO OUR UNIT BECAUSE HE IS DOING BETTER AND WITH HOPEFULLY GO HOME SOON. THIS RN RECEIVED REPORT FROM FRANCES WASHINGTON. PT TRANSFERRED TO BED AND SALES AMBASSADOR IN ROOM AT THIS TIME
--- NOTE | 2019-06-26 17:15 | NUR ---
PT UP TO THE BATHROOM WITH A SBA OF THIS RN. THEN PT BACK TO BED. PT CALLS APPRORIATELY
--- NOTE | 2019-06-26 18:10 | NUR ---
PT DONE EATING AT THIS TIME, CALL LIGHT WITHIN REACH. PT GAVE THIS RN A THUMBS UP, MEANING HE WAS DOING GOOD.
--- NOTE | 2019-06-26 19:30 | NUR ---
PT RESTING IN BED, WATCHING TV. PT GIVES THE "THUMBS UP" SIGN WHEN ASKED IF HE NEEDS ANYTHING. ICE WATER PROVIDED. CALL LIGHT IN REACH.
--- NOTE | 2019-06-26 21:10 | NUR ---
PT RESTING IN BED, EYES CLOSED. RR EVEN, UNLABORED. CALL LIGHT IN REACH.
--- NOTE | 2019-06-26 22:15 | NUR ---
ASSESSMENT COMPLETED. LUNGS CLEAR IN UPPER LOBES AND CRACKLES IN LOWER LOBES. IV WNL, CDI, FLUSHED WELL. CMS INTACT. NO COUGH NOTED. NO OTHER NEEDS AT THIS TIME. CALL LIGHT IN REACH.
--- NOTE | 2019-06-27 00:29 | NUR ---
PT COMPLAINS OF COUGH THROUGH GESTURES. HOT TEA PROVIDED. URINAL EMPTIED. NO OTHER NEEDS INDICATED. CALL LIGHT IN REACH.
--- NOTE | 2019-06-27 01:27 | NUR ---
PT RESTING IN BED, EYES CLOSED. RR EVEN, UNLABORED. CALL LIGHT IN REACH.
--- NOTE | 2019-06-27 04:25 | NUR ---
PT AWAKE IN ROOM. ANSWERING SERVICE AGENT PHONE USED TO ASSESS NEEDS AND COMPLETE ASSESSMENT. PT DENIES SOB AND PAIN. NO NEEDS AT THIS TIME. LUNGS CLEAR IN UPPER LOBES AND DIMINISHED IN LOWERS. NO NEEDS AT THIS TIME. ICE WATER PROVIDED. CALL LIGHT IN REACH.
--- NOTE | 2019-06-27 07:50 | NUR ---
0725: Report received from Maddy [place]. Pt resting in his bed. Clother In phone line called and the pt denies any cp, sob or any other problems at this time. He also states that he is feeling better. Call light within reach.
--- NOTE | 2019-06-27 09:55 | NUR ---
PT HAS NOT VOIDED IN THE LAST 4 HOURS AND HE STATES HE DOES NOT NEED TO VOID. PT ENCOUARAGED TO INCREASE HIS FLUID INTAKE WHICH HE STATES HE WILL DO.
--- NOTE | 2019-06-27 10:36 | NUR ---
TRIAL EXAMINER PHONE USED AND THE PT STATES HE HAS BEEN VOIDING IN THE BATHROOM AND FLUSHING IT. HE WAS REQUESTED TO USE THE URINAL WHICH HE STATES HE WILL DO. PT DENIES ANY PAIN OR OTHER PROBLEMS AT THIS TIME. HE STATES HE WISHES TO BE DISCHARGED WHICH HE WAS INFORMED THAT THE HOSPILIST WILL SEE HIM AND HE SHOULD DISCUSS THIS WITH HER. PT NOW SHOWERING AT THIS TIME.
--- NOTE | 2019-06-27 11:00 | NUR ---
DR Burton notified of the pt's hr, new orders recieved.
--- NOTE | 2019-06-27 11:09 | NUR ---
TELE PLACED ORDERED AND IT IS READING A-FIB AT 150. PRN IV DOSE OF LOPRESSOR GIVEN, SEE EMAR.
--- NOTE | 2019-06-27 11:30 | NUR ---
PT REMAINS ALERT AND ORIENTED X4, DENIES PAIN, NAUSEA, AND SOB. VITALS ARE WNL AT THIS TIME. PT IS RELAXING IN BED WATCHING TV, HE WAS ABLE TO EAT 100% OF HIS BREAKFAST. DENIES ANY FEELING OF RACING HEART.
--- NOTE | 2019-06-27 12:05 | NUR ---
CHECK ON PT CALL LIGHT WITHIN REACH, PT HAS LUNCH IN ROOM AT THIS TIME. PT APPEARED TO BE RESTING COMFORTABLY. PT STILL ON TELE, HR 120-140'S, DR. MERCADO AWARE
--- NOTE | 2019-06-27 12:27 | NUR ---
PT UP TO THE BATHROOM TO URINATE AND THEN BACK TO BED. PT SITTING UP IN BED EATING LUNCH.
--- NOTE | 2019-06-27 14:48 | NUR ---
PT RESTING COMFORTABLY IN BED. CALL LIGHT AND PHONE WITHIN REACH. ALL QUESTIONS AND CONCERNS ANSWERED AT THIS TIME.
--- NOTE | 2019-06-27 16:27 | NUR ---
CHECKED ON PT CALL LIGHT WITHIN REACH, ALL CONCERNS ANSWERED AT THIS TIME
--- NOTE | 2019-06-27 18:20 | NUR ---
PT RESTING IN BED AT THIS TIME. CALL LIGHT AND PHONE WITHIN REACH. ALL QUESTIONS AND CONCERNS ANSWERED AT THIS TIME
--- NOTE | 2019-06-27 19:10 | NUR ---
PT RESTING IN BED, WATCHING TV. NO NEEDS AT THIS TIME. TELE SHOWS AFIB @ 95. IV FLUIDS INFUSING PER ORDER. NO OTHER NEEDS AT THIS TIME. CALL LIGHT IN REACH.
--- NOTE | 2019-06-27 21:22 | NUR ---
PT ASSESSMENT COMPLETED. VS AND I&O COMPLETED BY MICHAEL BOJORQUEZ. LUNG SOUNDS CLEAR IN UPPER LOBES AND CRACKLES IN LOWER LOBES. IV WNL, CDI, FLUSHED WELL. IV FLUIDS INFUSING PER ORDER. TELE SHOWS AFIB @ 102. PT DENIES SOB OR CHEST PAIN. SKIN WPD. ICE WATER PROVIDED BY MICHAEL BOJORQUEZ. NO OTHER NEEDS ATT HIS TIME. CALL LIGHT IN REACH.
--- NOTE | 2019-06-28 00:02 | NUR ---
PT RESTING IN BED, EYES CLOSED. RR EVEN, UNLABORED. IV INFUSING PER ORDER. CALL LIGHT IN REACH.
--- NOTE | 2019-06-28 01:57 | NUR ---
PT AWAKE IN ROOM, WATCHING TV. NO NEEDS AT THIS TIME. CALL LIGHT IN REACH.
--- NOTE | 2019-06-28 03:31 | NUR ---
PT TELE ALARMING, PT SLEEPING IN ROOM. WAKES TO VOICE. ELECTRODES REPLACED. ASSESSMENT COMPLETED. LUNG SOUNDS CLEAR IN UPPER LOBES AND COURSE IN LOWER LOBES. NO NEEDS AT THIS TIME. CALL LIGHT IN REACH.
--- NOTE | 2019-06-28 04:13 | NUR ---
PT CALLS TO USE BR. UP TO BR AND BACK TO BED, SBA. DAILY WEIGHT OBTAINED. NO OTHER NEEDS. CALL LIGHT IN REACH.
--- NOTE | 2019-06-28 05:43 | NUR ---
PT SLEPT MOST THE SHIFT. PT TOLERATED IV WELL. IV CDI, WNL. DW 62.7 KG, 0.5KG INCREASE. TELE #7 AFIB TRENDING 90s-110. PT DENIES SOB AND CHEST PAIN. SKIN WPD. PT IS A SBA TO BR, UNSTEADY IN GAIT. UO SUFFICINET. BP STABLE.
--- NOTE | 2019-06-28 05:50 | NUR ---
PT RESTING IN BED, EYES CLOSED. RR EVEN, UNLABORED. CALL LIGHT IN REACH.
--- NOTE | 2019-06-28 06:42 | NUR ---
TELE SHOWING AFIB RATES 120-140. SCHEDULED CARDIZEM PROVIDED 1 HOUR EARLY. PT DENIES SOB OR CHEST PAIN. NO OTHER NEEDS. CALL LIGHT IN REACH.
--- NOTE | 2019-06-28 07:00 | NUR ---
REPORT RECIEVED. PT IN BED. TELE [address] HR 140'S. SALINE LOCKED. CALL LIGHT IN REACH.
--- NOTE | 2019-06-28 08:05 | NUR ---
PT WITH SUSTAINED HR IN 130'S INCREASING TO 170'S WITH AMBULATION. DR RAMIREZ NOTIFIED. ORDERS TO GIVE LOPRESSOR EARLY AND A ONE TIME DOSE OF CARDIZEM 30MG. KEEP PT ON BEDREST AT THIS TIME.
--- NOTE | 2019-06-28 10:00 | NUR ---
ASSESSMENT COMPLETED. PT SITTING UP IN CHAIR. ATE 50% OF BREAKFAST. SOME COARSE CRACKLES IN BASES. HEART SOUNDS IRREGULAR. NO EDEMA NOTED. BOWEL TONES ACTIVE. CALL LIGHT IN REACH. VACUUM BOTTLE ASSEMBLER LINE USED.
--- NOTE | 2019-06-28 13:33 | NUR ---
ROUNDED ON PT. PT SITTING IN BED. ATE 90% OF LUNCH. TELE 9IN COURTNEY WIT HHR OF 103. DENEIS SOB OR CHEST PAIN. CALL LIGHT IN REACH. DENIES NEEDS.
--- NOTE | 2019-06-28 15:00 | NUR ---
PT OUT AMBULATING HALLS. TOLERATING WELL. HR STAYING BELOW 100.
--- NOTE | 2019-06-28 18:42 | NUR ---
PATIENT IN BED WATCHING TV. FRESH WATER GIVEN. CALL LIGHT IN REACH. NO FURTHER NEEDS AT THIS TIME.
--- NOTE | 2019-06-28 18:58 | NUR ---
PT AWAKE IN ROOM. DENEIS SOBCHEST PAIN. TELE WITH AFIB AND HR OF 99. CALL LIGHT IN REACH.
--- NOTE | 2019-06-28 20:16 | NUR ---
ASSESSMENT COMPLETED. LUNG SOUNDS CLEAR IN UPPER LOBES AND CRACKLES IN LOWER LOBES. SCHEDULED MEDICATION PROVIDED. TELE AFIB @ 106. IV WNL, CDI, FLUSHED WELL. NO OTHER NEEDS AT THIS TIME. CALL LIGHT IN REACH.
--- NOTE | 2019-06-28 20:42 | NUR ---
Charge nurse rounding note: IVf infusing, alert, Israeli speaking only, translating line plus calling his son for interpreting cummunication. Calm, watching tv. dry non prod couch present. Tele#7 AFib rhythm. uses call light appropriately
--- NOTE | 2019-06-28 22:40 | NUR ---
PT RESTING IN BED, EYES CLOSED. RR EVEN, UNLABORED. CALL LIGHT IN REACH.
--- NOTE | 2019-06-29 00:22 | NUR ---
PT RESTING IN BED, EYES CLOSED. RR EVEN, UNLABORED. CALL LIGHT IN REACH.
--- NOTE | 2019-06-29 01:32 | NUR ---
PT RESTING IN BED, EYES CLOSED. TELE LEADS OFF, REPLACED BY MAIZE DIRECTOR OF PURCHASING. NO OTHER NEEDS. CALL LIGHT IN REACH.
--- NOTE | 2019-06-29 02:05 | NUR ---
VITALS COMPLETED BY MAIZE MIDDLE SCHOOL TEACHER. SCHEDULED MED PROVIDED. ASSESSMENT COMPLETED. LUNGS CLEAR IN UPPER LOBES AND CRACKLES IN LOWER LOBES. CMS INTACT. IV WNL. NO OTHER NEEDS AT THIS TIME. CALL LIGHT IN REACH.
--- NOTE | 2019-06-29 05:02 | NUR ---
PT RESTING IN BED, WATCHING TV. PT UP TO BR AND BACK TO BED. NO OTHER NEEDS. CALL LIGHT IN REACH.
--- NOTE | 2019-06-29 08:11 | NUR ---
REPORT RECEIVED. TELE [address] HR 103. PT IN BED WATCHING TV. DENEIS NEEDS AT THIS TIME. CALL LIGHT IN REACH.
--- NOTE | 2019-06-29 09:09 | NUR ---
ASSESSMENT COMPLETED. FOOT ROENTGENOLOGIST LINE USED. PT VERBALIZED UNINTRESTED IN HIS HEALTH ASKING US TO TALK TO HIS SON REGAURDING HIS HEALTH AND MEDICATIONS. SON VLADIMIR CALLED AND UPDATED ON POC. CRACKLES IN BASES. HEART RATE WELL CONTROLLED. PLAN TO GET UP FOR BREAKFAST, AMBULATE HALLS. PT AGGREABLE.
--- NOTE | 2019-06-29 09:32 | NUR ---
PT ATE 100% OF BREAKFAST. ATTEMPTED TO AMBULATE HALLS. AFTER A SHORT WALK PT REPORTED INCREASED FATIGUE AND WORK OF BREATHING. ASSISTED PT BACK TO BED. HEART RATE STAYED IN THE 80-90'S FOR THE WALK. DENIES CHEST PAIN. PT WAS ABLE TO WALK LONGER DISTANCE YESTERDAY. WILL TRY AGAIN LATER.
--- NOTE | 2019-06-29 09:37 | NUR ---
PATIENT SITTING IN CHAIR. FRESH WATER GIVEN. CALL LIGHT IN REACH. NO FURTHER NEEDS AT THIS TIME.
--- NOTE | 2019-06-29 10:35 | NUR ---
DR RAMIREZ TO PT BEDSIDE. PLAN OF CARE DISCUSSED. NEW ORDERS RECEIVED.
--- NOTE | 2019-06-29 12:23 | NUR ---
NURSE CALLED TO ROOM BY PT. PT REPORTING SOB WHILE LYING IN BED. DENIES CHEST PAIN OR TIGHTNESS. VITALS TAKE AND DOCUMENTED. 2L NC PLACED. DR RAMIREZ NOTIFIED. NEW ORDERS RECEIVED.
--- NOTE | 2019-06-29 13:08 | NUR ---
PT REPORTING MULTIPLE LIQUID STOOLS. DR RAMIREZ NOTIFIED. ORDERS FOR STOOL SAMPEL. PT OFF FLOOR TO IMAGING.
--- NOTE | 2019-06-29 16:43 | NUR ---
PT SET UP FOR INDEPENDENT SHOWER. HR FROM 80-105 WITH SHOWER. TOELRATED WELL. DENIES SOB.
--- NOTE | 2019-06-29 17:49 | NUR ---
SBA TO AMBULATE IN HALLS. COMPLETED A 5 MINUTE WALK WITH NO C/O SOB OR FATIGUE. PT TOLERATED WELL WITH NO BREAKS. ATE 100% OF DINNER. BACK TO BED, CALL LIGHT IN REACH
--- NOTE | 2019-06-29 18:10 | NUR ---
stool sample collected and sent to lab.
--- NOTE | 2019-06-29 18:25 | NUR ---
PATIENT IN BED WATCHING TV. CALL LIGHT IN REACH. NO FURTHER NEEDS AT THIS TIME.
--- NOTE | 2019-06-29 20:50 | NUR ---
Pt walking in room, no c/o pain or sob. Tele#[address], afib rhythm. Lungs dim at bases, on room air, ocassional dry cough present. Pt on Contact isolation C-Diff r/o. Procedures and med ed explanation done using translating phone w son translating. Coop, tolerating diet well, no c/o n/v. sl patent
--- NOTE | 2019-06-30 00:02 | NUR ---
Resting, no distress, coantinues on contact/ enteric r/o cdiff isolation
--- NOTE | 2019-06-30 02:00 | NUR ---
PT CALLED, NEEDED TO USE BATHROOM. INDENPENDENT. VOIDED, WELL LESS THAN 100 LOOSE QUINONEZ STOOL. NO OTHER NEEDS.
--- NOTE | 2019-06-30 04:07 | NUR ---
WARM BLANKET GIVE, NO C/O PAIN. CONTINUOS ON ENTERIC/CONTACT ISOLATION R/O C DIFF. TOLERATING LIQUIDS WELL,
--- NOTE | 2019-06-30 05:47 | NUR ---
Pt continuoues on enteric contact isolation r/o c -diff, has had only approx 50cc brown liquid bm. uses urinal, voiding QS, tolerating fluids, no c/o n/v or pain. no sob or CP, tele#[address], afib with pauses gets cardizen and metropolol for rate control. Independent in room. coop. using translating phone as he is Rwandan speaking only. Cooperative.
--- NOTE | 2019-06-30 07:40 | NUR ---
RECIEVED BED SIDE REPORT. PT RESTING IN BED AT THIS TIME. NO APPARENT NEEDS.
--- NOTE | 2019-06-30 09:54 | NUR ---
INTERPRATURE CONTACTED SO PT COULD ASK QUESTIONS AND CLARIFY PLAN OF CARE
--- NOTE | 2019-06-30 11:00 | NUR ---
CALLED INTERPRETATION LINE. ASKED IF PT HAD ANY CURRENT NEEDS. HE SAID NO NEEDS AT THIS TIME. TOLD HIM TO USE THE CALL BUTTON IF HE NEEDS ANYTHING OTERWISE WE WOULD BE BACK WHEN HIS LUNCH TRAY ARRIVES.
[2019-06-30] MEDS ORDERED: METOPROLOL SUC200 MG PO (12:05)
[2019-06-30] MEDS ORDERED: CARDIZEM CD240 MG PO (12:06)
== END 2019-06-30 12:50 | disposition home or self-care (01) | DRG 194 ==
LOC: ED 15:05 → CCU 15:07 → ED 18:37 → CCU 18:37 → MS 06-26 13:10
PROVIDERS: ADMIT Internal Medicine
DX: J13 Pneumonia due to Streptococcus pneumoniae (principal); N17.9 Acute kidney failure, unspecified; I48.21 Permanent atrial fibrillation; I50.22 Chronic systolic (congestive) heart failure; I42.9 Cardiomyopathy, unspecified; K52.1 Toxic gastroenteritis and colitis; D69.6 Thrombocytopenia, unspecified; E05.00 Thyrotoxicosis with diffuse goiter without thyrotoxic crisis or storm; E11.9 Type 2 diabetes mellitus without complications; I34.0 Nonrheumatic mitral (valve) insufficiency; T36.95XA Adverse effect of unspecified systemic antibiotic, initial encounter; Y92.239 Unspecified place in hospital as the place of occurrence of the external cause; Z79.84 Long term (current) use of oral hypoglycemic drugs; Z86.73 Personal history of transient ischemic attack (TIA), and cerebral infarction without residual deficits; Z87.891 Personal history of nicotine dependence; Z79.899 Other long term (current) drug therapy
CPT/HCPCS: 36415; 51701; 51702; 51798; 71045; 71046; 76770; 80048; 80053; 81001; 82728; 82803; 83735; 83880; 84439; 84443; 84484; 85025; 85379; 85651; 87040; 87088; 87493; 87502; 93005; 93010; 93306; 94640; 94660; 96372; 96374; 96375; 96376; 99285-25; G0378; J0696; J1650; J1940; J2060; J2270; J7030; J7050; J7121

== ENCOUNTER 2022-01-27 17:01 | Emergency (ER) | payer OTHER ==
[~2022-01-27] VITALS: Ht 165.1 cm; Wt 64.0 kg
[~2022-01-27 17:01] MED LIST changes: +CARDIZEM CD240 MG PO; +LEVOTHYROXINE75 MCG PO; +METOPROLOL SUC200 MG PO; +MULTI VITAMIN1 EACH PO
== END 2022-01-27 19:04 | disposition home or self-care (01) ==
LOC: ED 17:01
DX: K92.2 Gastrointestinal hemorrhage, unspecified (principal); D69.6 Thrombocytopenia, unspecified; I48.91 Unspecified atrial fibrillation; E11.9 Type 2 diabetes mellitus without complications; Z87.891 Personal history of nicotine dependence; Z79.899 Other long term (current) drug therapy; Z79.84 Long term (current) use of oral hypoglycemic drugs
CPT/HCPCS: 36415; 80053; 85025; 85060; 85610; 85730; 99284

== ENCOUNTER 2022-03-06 11:47 | Inpatient (IN) | payer OTHER ==
[~2022-03-06] VITALS: Ht 165.1 cm; Wt 56.8 kg
[~2022-03-06 11:47] MED LIST changes: +BISOPROLOL FUMA10 MG PO; +CRESTOR5 MG PO; +K-TAB ER20 MEQ PO; +TRADJENTA5 MG PO; +XARELTO10 MG PO
--- NOTE | 2022-03-06 15:00 | NUR ---
BEDSIDE REPORT GIVEN IN ER WITH COURT MONITOR SHARONA. PT TRANSPORTED AT THIS TIME TO CCU ON GATE AGENT AND 3 L NC. TRANSPORTED BY THIS RN; ALL BELONGINGS TRANSPORTED BY PT.
--- NOTE | 2022-03-06 15:45 | NUR ---
INITIAL ASSESSMENT COMPLETED. PT ALERT AND ORIENTED. NON CROATIAN SPEAKING, RENT COLLECTOR USED. PT ALERT AND ORIENTED TO SELF AND PLACE, NOT DATE. PT HAS UPPER AIRWAY WHEEXE, AND COARSE BREATH SOUNDS IN LOWER AIR NAVARRO. BLOOD PRESSURE SYSTOLICALLY 100-115, MAPS WNL. PT APPEARS PALE. PT IS SHIVERING. ORAL TEMP OF 97.4. WARM BLANKETS PROVIDED AT THIS TIME. PLAN OF CARE ESTABLISHED. REPEAT LACTIC ACID DRAWN AT THIS TIME. IV ABX INFUSING. CALL LIGHT WITHIN REACH AND SON AT BEDSIDE. WILL CONTINUE TO MONITOR.
[2022-03-06] MEDS ORDERED: BISOPROLOL FUMAR5 MG PO (15:49)
[2022-03-06] MEDS ORDERED: ROSUVASTATIN CA10 MG PO (15:50)
[2022-03-06] MEDS ORDERED: ENOXAPARIN40 MG/0.4 SUB-Q (15:52)
--- NOTE | 2022-03-06 16:16 | NUR ---
SON AT BEDSIDE AT THIS TIME. SON EXPLAINED TO PT ABOUT INSERTING A BROWNE CATHETER. PT AGREEABLE. BROWNE CATHETER INSERTED. WELL TOLERATED BY PT. 250 MLS OF CLEAR YELLOW URINE FOR IMMEDIATE RETURN
--- NOTE | 2022-03-06 19:45 | NUR ---
BEDSIDE REPORT RECEIVED WITH PT'S SON AT ATTENDANCE. PT IN NO DISTRESS.
--- NOTE | 2022-03-06 21:00 | NUR ---
PT ASSESSED WITH SON AT BEDSIDE. SON ABLE PROVIDE INTERPRETATIVE SERVICES. PT WITH NO COMPLAINTS AT THIS TIME. PT IS RESTING COMFORTIBLY. PT IS AWAKE AND ORIENTED TO PERSON, PLACE AND EVENT BUT UNABLE TO ANSWER QUESTIONS ABOUT DATE AND TIME DUE TO CULTURAL DIFFERENCES. V/S ASSESSED. PT FOUND TO BE HYPOGLYCEMIC WITH A BG OF 68. ORANGE JUICE PROVIDED. BG REASSESSED Q15 MINUTES PER PROTOCOL. BG FOUND TO BE ABOVE 100.
--- NOTE | 2022-03-06 21:13 | NUR ---
BLOOD SUGAR CHECK REPEATED AND IS NOW WNL. NO FURTHER NEEDS NOTED. ALL QUESTIONS ANSWERED. CALL LIGHT IN REACH.
--- NOTE | 2022-03-06 21:56 | NUR ---
ASSISTED CHARGE NURSE WITH REPOSITIONING PT. BED ALARM SET. CALL LIGHT LEFT WITHIN REACH. SON IN ROOM. NO OTHER NEEDS AT THIS TIME.
--- NOTE | 2022-03-06 22:01 | EKG ---
[facility] [address] [place] [address] Signed Atrial fibrillation Low voltage QRS Abnormal ECG When compared with ECG of 02-MAR-2022 10:26, No significant change was found Confirmed by Radha Lombardo MD () on 03/06/2022 10:01:24 PM Electronically Signed By: RADHA LOMBARDO MD 03/06/222200 PATIENT NAME: TEE OLIVEIRA SARAH Electrocardiogram DATE OF : 45 PHYSICIAN: RADHA LOMBARDO MD REPORT #: [id number] REPORT IS CONFIDENTIAL AND NOT TO BE RELEASED WITHOUT AUTHORIZATION
--- NOTE | 2022-03-06 23:50 | NUR ---
PT ASSESSED AND FOUND TO BE SLEEPING. PT DOES NOT APPEAR TO BE IN ANY DISTRESS. V/S WNL. PT WITH ADEQUATE UO. PT'S SON IS IN ATTENDANCE.
--- NOTE | 2022-03-07 01:30 | NUR ---
PT REASSESSED AND FOUND TO BE SLEEPING IN HOSPITAL BED. PT DOES NOT APPEAR TO BE IN ANY APPARENT DISTRESS. V/S OBTAINED, AND UO COLLECTED. LS WITH NOTED AUDIBLE EXPIRATORY WHEEZES. UPON AUSCULTATION, LS ARE CORSE IN BILATERAL UPPERS WITH EXPIRATORY WHEEZES AND CORSE TO DIMINISHED IN BASIS. CBG OBTAINED AND FOUND TO BE WNL. PT WITH ADEQUATE PO INTAKE.
--- NOTE | 2022-03-07 04:00 | NUR ---
PT RESTING COMFORTABLY IN BED. V/S REASSESSED. PT WITH ADEQUATE UO NOTED IN BROWNE CATHETER. CATHETER CARE PERFORMED WITH CHG WIPE. PT WITH NO COMPLAINTS AT THIS TIME.
--- NOTE | 2022-03-07 07:30 | NUR ---
REPORT RECEIVED, CARE OF PT ASSUMED AT THIS TIME.
--- NOTE | 2022-03-07 08:36 | NUR ---
PATIENT AWAKE IN BED, VITALS AND I&OS CHARTED, BROWNE EMPTIED. FACE AND HANDS WASHED. PATIENT REPOSITIONED IN BED FOR BREAKFAST. PATIENT FEEDING HIMSELF AND TOLERATING WELL. CALL LIGHT IN EASY REACH
--- NOTE | 2022-03-07 08:45 | NUR ---
ASSESSMENT AND MEDICATION ADMINISTRATION COMPLETED. PT IN AFIB WITH RVR AT A RATE UP TO 130S. ORAL CARDIZEM GIVEN. DISCUSSED PTS HEART RATE, BLOOD PRESSURE, AND HOME MEDICATION REGIMEN WITH DR LOMBARDO AT THIS TIME. VERBAL ORDER GIVEN FOR IV METOPROLOL (SEE EMAR). IV METOPROLOL ADMINISTERED. CRACKLES NOTED IN BILATERAL LUNG BASES, UPPER AIRWAYS CLEAR AT THIS TIME. PT DENIES PAIN. PLAN OF CARE ESTABLISHED WITH PTS SON. PTS SON TO GO HOME, BUT IS AVALIABLE BY TELEPHONE. PT ATE 25% PERCENT OF BREATKGAST. CALL LIGHT WITHIN REACH. WILL CONTINUE TO MONITOR.
--- NOTE | 2022-03-07 09:05 | NUR ---
Pt sleeping. Son is out of room. Will return when son returns.
--- NOTE | 2022-03-07 09:37 | NUR ---
PT REMAINS IN AFIB RVR WITH A RATE UP INTO 150S. PT RESTING IN BED. RESPIRATIONS EVEN AND UNLABORED. DOES NOT APPEAR IN DISTRESS. DR LOMBARDO UPDATED.
--- NOTE | 2022-03-07 10:24 | NUR ---
DR LOMBARDO IN ROOM AT THIS TIME TO ASSESS PT. FRONT END MANAGER LINE USED. PT DENIES CHEST PAIN, FLUTTERING OR DISCOMFORT, OR SHORTNESS OF BREATH. PLAN ESTABLISHED FOR THE DAY. ALL PT QUESTIONS ANSWERED.
--- NOTE | 2022-03-07 10:30 | NUR ---
PT'S SON NOW AT BEDSIDE. DISCUSSED PLAN OF CARE AND ALL QUESTIONS ANSWERED. PLAN OF CARE ESTABLISHED TO RESTART PT'S ANTICOAGUALTION MEDICATION.
--- NOTE | 2022-03-07 12:14 | NUR ---
ASSESSMENT COMPLETED. PT EATING LUNCH. HEART RATE IN THE 110-120. ORAL CARDIZEM GIVEN (SEE EMAR). PT DENIES PAIN OR FURTHER NEEDS AT THIS TIME.
--- NOTE | 2022-03-07 13:45 | NUR ---
COLOR PRINT INSPECTOR DEVICE USED TO COMMUNICATE WITH PATIENT. PATIENT NEEDS TO HAVE BM. THIS CYTOPATHOLOGIST ALSO HAD COLOR PRINT INSPECTOR EXPLAIN TO PATIENT PLAN OF CARE WHICH WAS TO GET HIM ON A BEDPAN, CLEAN HIM UP, CHANGE LINEN AND REPOSITION HIM. PATIENT VERBALIZES UNDERSTANDING. HR INTO 160S WITH SMALL ACTIVITY OF PLACING BEDPAN UNDER PATIENT. RN NOTIFIED AND IN ROOM. PATIENT HAD LARGE LIQUID BM, BURGANDY IN COLOR. DR LOMBARDO NOTIFIED. PATIENT CLEANED UP AND CALL LIGHT IN EASY REACH. RN AT BEDSIDE.
--- NOTE | 2022-03-07 13:56 | NUR ---
PT HEART RATE UP INTO THE 160S WITH MOVING ON TO BED GRIFFIN. PT HAD LARGE BLOODY STOOL. IV METOPOROLOL GIVEN. DR LOMBARDO UPDATED AT THIS TIME. ORDERS FRO STAT CBC AT THIS TIME. INCONTINENT CARE PROVIDED. PT REPOSITIONED IN BED. IV FLUIDS INFUSING. HEART RATE NOW DOWN TO 110-120 AT REST. WILL CONTINUE TO CLOSELY MONITOR.
--- NOTE | 2022-03-07 14:16 | NUR ---
MED REC COMPLETE
--- NOTE | 2022-03-07 14:55 | NUR ---
PT UP TO BSC TO HAVE LARGE BLOODY STOOL. WEAK ON FEET, 2 NURSE ASSIST REQUIRED. HEART RATE UP INTO THE 170S. CAREDIZEM DRIP INITIATED AT 10 MG/HR. RATE OK'D BY DR QUEVEDO. PT NOW BACK IN BED. RR = 28 AT REST. PT 91% ON 2 L NC. PTS SON JUANITO UPDATED ON CHANGES AND PLAN OF CARE. HR NOW DOWN TO 120-130. THIS RN REMAINS AT BEDSIDE.
--- NOTE | 2022-03-07 16:07 | NUR ---
ASSESSMENT COMPLETED. MULTIPLE ATTEMPTS BY TWO RNS TO GET SECOND IV SITE WITHOUT SUCCESS. RN COMMUNITY MARKETING COORDINATOR AND DR LOMBARDO UPDATED. PT REAMINS AT 12.5 MG/HR ON THE CARDIZEM DRIP. HEART RATE 95-110 AT REST. PT HAS UPPER AIRWAY EXPRIATORY WHEEZE. RR=25-30 AT REST. PT HAS OCCASIONAL COUGH. DENIES PAIN, WEAKNESS OR SHORTNESS OF BREATH. IV VANCOMYCIN ALSO INFUSING. CALL LIGHT WITHIN REACH. WILL CONTINUE TO CLOSELY MONITOR.
--- NOTE | 2022-03-07 17:25 | NUR ---
INSULIN GIVEN PER SLIDING SCALE. PT HEART RATE IN THE 90S. PT REMAINS ON CARDIZEM DRIP AT 12.5. IV VANCOMYCIN FINISHED INFUSING. SON AT BEDSIDE. WILL CONTINUE TO MONITOR.
--- NOTE | 2022-03-07 17:38 | NUR ---
DISCUSSED PT'S LIMITED IV ACCESS, CARDIZEM DRIP RATE, AND OTHER ASSESSMENT FINDINGS. ORDER RECIEVED TO CHANGE IV FLUIDS FROM LR TO NS AT THIS TIME.
--- NOTE | 2022-03-07 18:42 | NUR ---
IN ROOM TO ASSIST LAB WITH BLOOD DRAW. IV FLUIDS AND CARDIZEM DRIP INFUSING. CALL LIGHT WITHIN REACH. WILL CONTINUE TO MONITOR.
--- NOTE | 2022-03-07 19:45 | NUR ---
PT RESTING IN BED, PT IS IN NO APPARENT DISTRESS. DILT GTT REDUCED TO 7.5 MG/HR. HR NOPTED TO INCREASE IN THE 120 TO 130. DILT GTT INCREASE BACK TO 10 MG/HR. RIVER CROSSING SUPERVISOR USED FOR ASSESSMENT. PT IS A&O X 4. PT WITH NO COMPLAINTS AT THIS TIME. PT FOLLOWS COMMANDS APPROPRIATELY. PT REQUESTING FOOD. PT IS ON A 60 G DIET ORDER. PT PROVIDED WITH SUGAR FREE JELLOW. BED EXIT ALARM SET. CALL LIGHT PLACED AT PATIENTS SIDE. PT WITH NO REQUEST AT THIS TIME.
--- NOTE | 2022-03-07 21:10 | NUR ---
BROWNE CATHETER CLEANED WITH CHG WIPE
--- NOTE | 2022-03-08 00:54 | NUR ---
LAB CALLED TO REPORT CRITICAL PLT COUNT OF 38. H/H 7.3/22.7
--- NOTE | 2022-03-08 08:00 | NUR ---
PATIENT WOKE TO VOICE AND TOUCH, VITALS AND I&OS CHARTED, BROWNE EMPTIED. BEDBATH PROVIDED, PATIENT ASSISTING WITH SOME CARE. MINE TECHNICIAN DEVICE USED TO COMMUNICATE WITH PATIENT ABOUNT MORNING PLAN OF CARE. PATIENT SLEPT WELL AND REPORTS NO QUESTIONS OR PAIN. PATIENT AGREES TO GET UP TO BSC AND RECLINER. 2PA FOR TRANSFER. PATIENT TOLERATED WELL, O2 INCREASED TO 5L WITH ACTIVITY. PATIENT HAD LG LIQUID STOOL(BURGANDY IN COLOR.) BREAKFAST PROVIDED, CALL LIGHT IN EASY REACH
--- NOTE | 2022-03-08 08:12 | NUR ---
PT UP TO BSC. PT HAD MEDIUM SIZE LIQUID BLOODY BOWEL MOVEMENT. PT LOOKS PALE, DIAPHORETIC AND CLAMMY, INCREASED WORK OF BREATHING. HEART RATE INTO THE 140S. DR LOMBARDO UPDATED ON ASSESSMENT FINDINGS AND DILTAZEM DRIP RATE INCREASED TO 20MG/HR. TELEPHONE ORDER FRO 2 UNITS OF BLOOD AND ORAL POTASSIUM (SEE EMAR).
--- NOTE | 2022-03-08 08:43 | NUR ---
PT EATING BREAKFAST IN CHAIR. WITH US OF PHLEBOTOMY SERVICES TECHNICIAN LINE DISCUSSED ORAL POTASSIUM ADMINISTRATION AND BLOOD ADMINISTRATION WITH PT. ALL PT QUESTIONS ANSWERED. DILTAZEM DRIP AND ABX NOW INFUSING. HEART RATE IN THE 110S WHILE EATING. CALL LIGHT WITHIN REACH. WILL CONTINUE TO MONITOR.
--- NOTE | 2022-03-08 09:10 | NUR ---
Spoke with pt using Electronic email marketing intern in the room. Pt states he lives at home with his . His son helps them. Pt has history of a stroke and his R side is weak. Pt uses a wc in the home. provides care and assists him. Pt denies needs to go home. Son, To, arrives and agrees with the above. He also denies needs for any DME. I did discuss with the son, JAMIL received a call from [employer] stating pt has medicare. Son denies this and states pt only has MOD[employer]. I called and gave UR son's phone number.
--- NOTE | 2022-03-08 09:30 | NUR ---
DILTAZEM DRIP TITRATED DOWN TO 15 MG/HR AT THIS TIME.
--- NOTE | 2022-03-08 09:35 | NUR ---
ON BINGO CASHIER LINE WITH DR LOMBARDO IN ROOM TO CONSENT TO BLOOD PRODUCT ADMINISTRATION. ALL QUESTIONS ANSWERED AND CONSENT SIGNED.
--- NOTE | 2022-03-08 10:07 | NUR ---
FIRST UNIT OF PRBCS STARTED AT 75CC HR. THIS RN REAMINS AT BEDSIDE WITH PT
--- NOTE | 2022-03-08 10:17 | NUR ---
FIRST 15 MINUTES OF BLOOD TRANSFUSION WELL TOLERATED BY PT. RATE OF BLOOD INCREASED TO 150 MLS/HR. CARDIZEM DRIP REMAINS AT 15 MG/HR.
--- NOTE | 2022-03-08 11:34 | NUR ---
TAR HEEL IN ROOM AT THIS TIME TALKING WOT PATIETN WITH USE OF MEDICAL BILLING INSTRUCTOR LINE. PT REMAINS ON CARDIZEM DRIP WITH BLOOD INFUSING.
--- NOTE | 2022-03-08 11:39 | NUR ---
SON JUANITO IN ROOM AT THIS TIME. UPDATED ON CARE PLAN FOR DAY
--- NOTE | 2022-03-08 11:44 | NUR ---
ASSESSMENT COMPETLETED. PT DILTIAZEM DRIP TITRATED DOWN TO 10 MG/HR AT THIS TIME. HEART RATE IN THE 90S AT REST. BLOOD CONTINUES TO INFSUE. PT NOW EATING LUNCH. SON IS AT BEDSIDE. CALL LIGTH WITHIN REACH. WILL CONTINUE TO MONITOR.
--- NOTE | 2022-03-08 12:02 | NUR ---
DR LOMBARDO IN ROOM TO ASSESS PT AT THIS TIME.
[2022-03-08] MEDS ORDERED: POTASSIUM CHLO10 ME1 PO (12:09)
--- NOTE | 2022-03-08 12:23 | NUR ---
FIRST UNIT OF BLOOD COMPLETED. PT HEARTY RATE DOWN INTO THE 70S. CARDIZEM DRIP DECREASED TO 5 MG/HR. PT ASSISTED BACK TO BED. EXERTIONAL SHORTNESS OF BREATH NOTED, PT WEAK ON FEET. EXTENSIVE ONE PERSON ASSIST REQUIRED. CALL LIGHT WITHIN REACH. WILL CONTINUE TO MONITOR.
--- NOTE | 2022-03-08 12:31 | NUR ---
PATIENT AWAKE IN RECLINER, VITALS AND I&OS CHARTED, BROWNE EMPTIED. PATIENT REQUESTS TO GET BACK INTO BED. 1PA WITH TRANSFER, PATIENT SOMEWHAT STEADY ON HIS FEET BUT DEFINITELLY NEEDED ASSISTANCE. WARM BLANKETS PROVIDED. CALL LIGHT IN EASY REACH, PATIENT COMFORTABLE.
--- NOTE | 2022-03-08 14:13 | NUR ---
JAIME FROM RT IN DOING RESPIRATORY ASSESSMENT, NOTED EXPIRATORY WHEEZING SOME SAT DROPS TO 88-89%, CALLED DR VASQUEZ, HE SATES TO GIVE PT DUONEB HE WILL BE PUTTING IN ORDERS, NO CRACKLES NOTED, PT IS RECEIVING SECOND UNIT PRBC'S
--- NOTE | 2022-03-08 15:05 | NUR ---
SECOND UNIT OF BLOOD COMPLETED. PT NOW SALINE LOCKED.
--- NOTE | 2022-03-08 15:54 | NUR ---
RESPONDED TO PT CALL LIGHT. PT BROWNE CATHETER LEAKING. PT ASSISTED UP TO [facility] COMMODE WHERE HE HAD A LARGE SEMISOFT BM. MORE BROWN IN COLOR THAN PREVIOUS ASSESSMENT. PT SHORT OF BREATH WITH ACTIVITY BUT NOW BACK IN BED. HEART RATE REMAINED WNL DURING ACTIVITY. AUDIBLE EXPIRATORY WHEEZE IN UPPER AIRWAY NOTED. BROWNE CATHTER REMOVED. CALL LIGHT WITHIN REACH. WILL CONTINUE TO MONITOR.
--- NOTE | 2022-03-08 17:03 | NUR ---
PT EATING DINNER, ASKING FOR PAINTER AND PAPERHANGER APPRENTICE. WITH US OF PAINTER AND PAPERHANGER APPRENTICE PT ASKING WHEN HE IS GOING HOME AND WHERE HIS SON IS. PT REORIENTED AT THIS TIME. RIGHT AC IV INFILTRATED. DC'D AT THIS TIME. VANCOMYCIN NOW INFUSING INTO LEFT FOREARM. CALL LIGHT WITHIN REACH. WILL CONTINUE TO MONITOR.
--- NOTE | 2022-03-08 19:03 | NUR ---
PT URINATED IN URINAL. INCONTINENT CARE PROVIDED. PT REPOSITIONED IN BED. CALL LIGHT WITHIN REACH.
--- NOTE | 2022-03-08 19:59 | NUR ---
PT ASSESSMENT COMPLETED. PT IS CURRENTLY ON 4L NC, SPO2 93%. IV FLUIDS RUNNING. FAMILY AT BEDSIDE. PT DENIES NEEDS/COMPLAINTS ATT. RATES PAIN 0/10.
--- NOTE | 2022-03-08 21:22 | NUR ---
TO PT ROOM FOR MEDICATION ADMINISTRATION. PT IS ALERT, RESPIRATIONS EVEN AND REGULAR. IV FLUIDS RUNNING. FAMILY AT BEDSIDE.
--- NOTE | 2022-03-09 | NUR ---
PT ASSESSMENT COMPLETED. PT IS ALERT, RESPIRATIONS EVEN AND REGULAR. IV FLUIDS RUNNING. FAMILY AT BEDSIDE. NO COMPLAINTS ATT.
--- NOTE | 2022-03-09 02:46 | NUR ---
MEDICATION ADMINISTRATION COMPLETED. EMPTIED PT URINAL. PT IS ALERT, RESPIRATIONS EVEN AND REGULAR SPO2 95% ON 4L. CALL LIGHT WITHIN REACH.
--- NOTE | 2022-03-09 08:00 | NUR ---
PT UP TO BSC TO HAVE A BOWEL MOVEMENT, MODERATE AMOUNT OF BLOOD NOTED IN STOOL. PT NOW IN RECLINER CHAIR EATING BREAKFAST. EXPIRATORY WHEEZE NOTED AT TIMES. HEART RATE IN THE 130S WITH ACTIVITY. PT REMAINS IN AFIB.
--- NOTE | 2022-03-09 08:30 | NUR ---
INTO PATIENT ROOM, IV DISTAL OCCLUSION. PATIENT SLEEPING, SNORING SOFTLY. IV REPOSITION AND IV RESTARTED. NO FURTHER NEEDS FROM PATIENT AT THIS TIME. PER AM MEETING PATIENT TO START PO CARDIAZEM TODAY WITH POSSIBLE DC TOMORROW. NO CHANGE IN DISCHARGE PLAN AT THIS TIME.
--- NOTE | 2022-03-09 09:00 | NUR ---
DISCUSSED PT HEART RATE WITH DR LOMBARDO. DOSE OF CARDIZEM ADDED TO MORNING MEDICATIONS. NO INSULIN GIVEN FOR BLOOD SUGAR WNL. PT IS AFEBRILE. RESPIRATORY RATE INCREASES WITH ACTIVITY. PT ASSISTED BACK INTO BED. CALL LIGHT WITHIN REACH. WILL CONTINUE TO MONITOR.
--- NOTE | 2022-03-09 09:23 | NUR ---
REPORT RECIEVED, CARE PT ASSUMED AT THIS TIME.
--- NOTE | 2022-03-09 10:30 | NUR ---
WITH USE OF SAND CUTTER OPERATOR LINE, PT STATES " WE ARE KEEPING HIM FROM SEEING HIS SON OR THE PHONE" SON SOLOMON IN ROOM AT THIS TIME. SON JUANITO STATES PT IS CONFUSED AND ATTMEPTING TO REDIRECT PT AT THIS TIME.
--- NOTE | 2022-03-09 11:56 | NUR ---
ASSESSMENT COMPLETED. HEART RATE NOW LESS THAN 100. RESPIRATORY THERAPIST GAVE PT BREATHING TO HELP WITH EXPIRATORY WHEEZE. PT NOW EATING LUNCH. CALL LIGHT WITHIN REACH. WILL CONTINUE TO MONITOR.
--- NOTE | 2022-03-09 12:27 | NUR ---
PATIENT AWAKE IN BED, FINISHED WITH LUNCH. VITALS AND I&OS CHARTED. TEETH BRUSHED. CALL LIGHT IN EASY REACH. NO OTHER NEEDS AT THIS TIME
--- NOTE | 2022-03-09 14:20 | NUR ---
WATER TANKER DRIVER IN ROOM WITH PT TO HELP WITH REPOSITIONING PT. PT SON, SOLOMON, AT BEDSIDE WELL. CALL LIGHT WITHIN REACH. WILL CONTINUE TO MONITOR.
--- NOTE | 2022-03-09 16:00 | NUR ---
ASSESSMENT COMPLETED. PT VOIDED 250 MLS TO URINAL. ASSISTED WITH REPOSITIONING IN BED. RT GAVE BREATHING TX; PT NOW RESTING ON ROOM AIR. SPO2 = 94%. PT CONTINUES TO HAVE EXPIRATORY WHEEZE. AFEBRILE, HEART RATE IN THE 80S. RESPIRATIONS EVEN AND UNLABORED. CALL LIGHT WITHIN REACH. WILL CONTINUE TO MONITOR.
--- NOTE | 2022-03-09 17:06 | NUR ---
MEDICATIONS ADMINISTERED. PT REPOSITIONED IN BED. PT ON FACETIME CALL WITH AND EATING DINNER. CALL LIGHT WITHIN REACH. WILL CONTINUE TO MONITOR.
--- NOTE | 2022-03-09 19:54 | NUR ---
PT ASSESSMENT COMPLETED WITH THE HELP OF INTERPRETOR SERVICE. PT IS A/O, RESPIRATIONS EVEN AND REGULAR, WHEEZES THROUGHOUT. REMAINS ON RA SPO2 91%, DENIES FEELING SOB. DENIES PAIN ATT. REMINDED TO PLEASE USE CALL LIGHT WHEN NEEDS ASSISTANCE.
--- NOTE | 2022-03-09 21:00 | NUR ---
TO PT ROOM FOR MEDICATION ADMINISTRATION. BEDDING CHANGED. PT REPOSITIONED IN BED. FAMILY AT BEDSIDE.
--- NOTE | 2022-03-09 22:28 | NUR ---
ROUNDED ON PT. PT APPEARS TO BE SLEEPING COMFORTABLY. RESPIRATIONS EVEN AND REGULAR. CONTINUES ON RA, SPO2 91%. CALL LIGHT WITHIN REACH.
--- NOTE | 2022-03-10 00:30 | NUR ---
PT ASSESSMENT COMPLETED. PT SATS 87-88% ON RA. PLACE ON 2L NC. CALL LIGHT WITHIN REACH.
--- NOTE | 2022-03-10 01:53 | NUR ---
ROUNDED ON PT. PT APPEARS TO BE SLEEPING COMFORTABLY, BUT WITH AUDIBLE RESPIRATORY WHEEZES. RT CALLED FOR PRN NEB. NEW BAG IV FLUIDS HUNG.
--- NOTE | 2022-03-10 02:56 | NUR ---
TO PT ROOM FOR MEDICATION ADMINISTRATION. SPO2 91% ON RA. PT CONTINUES TO HAVE AUDIBLE WHEEZES WHEN SLEEPING. FAMILY AT BEDSIDE.
--- NOTE | 2022-03-10 05:30 | NUR ---
PT REPOSTIONED IN BED. IV FLUIDS RUNNING. LAB AT BEDSIDE. SON IN ROOM, PT DENIES NEEDS ATT. CALL LIGHT WITHIN REACH.
--- NOTE | 2022-03-10 07:30 | NUR ---
REPORT RECEIVED. CARE OF PT ASSUMED AT THIS TIME.
--- NOTE | 2022-03-10 07:53 | NUR ---
ASSESSMENT COMPLETED. PT INCONTINENT OF URINE. CLERK GENERAL OFFICE IN ROOM PROVIDING BED BATH. PT REPOSITIONED IN BED AT THIS TIME. HEART RATE INTHE 130S. ORAL MEDICATIONS FOR RATE CONTROL ADMINISTERED WITH OTHER AM MEDICATIONS. NO INSULIN GIVEN FOR BLOOD SUGAR WITHIN NORMAL RANGE. MILD EXPIRATORY WHEEZE NOTED IN UPPER AIRWAYS. RT JAIME AT BEDSIDE ADMINISTERING BREATHING TX. PT DENIES PAIN OR DISCOMFORT. PLAN OF CARE FOR DAY ESTABLISHED WITH PT BY USING SHOE REPAIR SUPERVISOR LINE. ALL QUESTIONS ANSWERED. PT NOW EATING BREAKFAST. CALL LIGHT WITHIN REACH. WILL CONTINUE TO MONITOR.
--- NOTE | 2022-03-10 09:11 | NUR ---
CALL LIGHT ON, INTO PATIENT ROOM. PATIENT REQUESTING URINAL, WHITNEY BOJORQUEZ AT BEDSIDE. PER PORTIA W[place] PATIENT MAY DISCHARGE TODAY PENDING FURTHER OBSERVATION OF HR. CURRENTLY THEY ARE WAITING FOR THE PATIENT SON TO ARRIVE SO THEY CAN DISCUSS DISCHARGE FURTHER. APPEARS THAT THERE ARE NO DISCHARGE NEEDS AT THIS TIME, BUT CASE MANAGEMENT AVAILABLE IF NEEDED.
--- NOTE | 2022-03-10 10:00 | NUR ---
PT UP TO BSC TO HAVE BOWEL MOVEMENT. LIGHT BOWN WITH SOME DARK BURGUNDY COLORING. LEFT IV INFILATRATED. DC'D AT THIS TIME. HEART RATE 110-[address] LOMBARDO NOTIFIED.
--- NOTE | 2022-03-10 11:00 | NUR ---
DR LOMBARDO IN ROOM WITH THIS RN, PT, AND PT'S SON SOLOMON TO DISCUSS DISCHARGE. ALL QUESTIONS ANSWERED. PLAN ESTABLISHED FOR PT TO REMAIN OFF BLOOD THINNERS AND TO FOLLOW UP WITH DR RAGLAND FOR OUTPATIENT COLONOSCOPY. NEW 24 G IV STARTED PT'S RIGHT HAND. PT SALINE LOCKED AT THIS TIME.
--- NOTE | 2022-03-10 11:46 | NUR ---
ASSESSMENT UNCHANGED. PT GIVEN INSULIN PER SLIDING SCALE, REPOSITIONED IN BED, AND IS NOW EATING LUNCH. CALL LIGHT WITHIN REACH. WILL CONTINUE TO MONITOR.
[2022-03-10] MEDS ORDERED: CEFDINIR300 MG PO (12:39)
[2022-03-10] MEDS ORDERED: DOXYCYCLINE HY100 MG PO (12:39)
[2022-03-10] MEDS ORDERED: OSELTAMIVIR PHO75 MG PO (12:40)
[2022-03-10] MEDS ORDERED: IPRAT-ALBUT 0.5-3 ML INH (12:41)
--- NOTE | 2022-03-10 12:59 | NUR ---
PT'S SON JUANITO PROVIDED ALL DISCHARGE INSTRUCTIONS. IV DC'D AND FINAL VITAL SIGNS COMPLETED AT THIS TIME. ASSISTED PT WITH GETTING DRESSED.
== END 2022-03-10 13:29 | disposition home or self-care (01) | DRG 871 ==
LOC: ED 11:47 → CCU 13:46
PROVIDERS: ADMIT Internal Medicine; ATTEND Family Medicine
PROC: 30233N1 Transfusion of Nonautologous Red Blood Cells into Peripheral Vein, Percutaneous Approach (ICD-10-PCS; principal; 2022-03-06)
PROC: 3E03329 Introduction of Other Anti-infective into Peripheral Vein, Percutaneous Approach (ICD-10-PCS; 2022-03-06)
DX: A41.89 Other specified sepsis (principal); J10.01 Influenza due to other identified influenza virus with the same other identified influenza virus pneumonia; J96.01 Acute respiratory failure with hypoxia; K92.1 Melena; I69.351 Hemiplegia and hemiparesis following cerebral infarction affecting right dominant side; Z20.822 Contact with and (suspected) exposure to COVID-19; K70.10 Alcoholic hepatitis without ascites; D69.59 Other secondary thrombocytopenia; E78.00 Pure hypercholesterolemia, unspecified; I48.91 Unspecified atrial fibrillation; E87.6 Hypokalemia; E11.9 Type 2 diabetes mellitus without complications; E05.00 Thyrotoxicosis with diffuse goiter without thyrotoxic crisis or storm; Z90.49 Acquired absence of other specified parts of digestive tract; Z87.891 Personal history of nicotine dependence; Z79.01 Long term (current) use of anticoagulants; Z79.899 Other long term (current) drug therapy
CPT/HCPCS: 36415; 71045; 80048; 80053; 80202; 81001; 82784; 83036; 83605; 83735; 85025; 86850; 86900; 86901; 86922; 87070; 87088; 87205; 87502; 93005; 93010; 94640; A9270; C9113; C9803; J0456; J0696; J1815; J3370; J7030; J7060; J7121; P9016; U0003

== ENCOUNTER 2022-03-11 12:52 | Emergency (ER) | payer OTHER ==
[~2022-03-11] VITALS: Ht 165.1 cm; Wt 56.7 kg
[~2022-03-11 12:52] MED LIST changes: +BISOPROLOL FUMAR5 MG PO; +CEFDINIR300 MG PO; +DOXYCYCLINE HY100 MG PO; +ENOXAPARIN40 MG/0.4 SUB-Q; +IPRAT-ALBUT 0.5-3 ML INH; +OSELTAMIVIR PHO75 MG PO; +POTASSIUM CHLO10 ME1 PO; +ROSUVASTATIN CA10 MG PO
--- OUTSIDE RECORDS SUMMARY | 2022-03-11 13:00 | XMS ---
PreManage Notification: TEE OLIVEIRA Security Branch Service Leader Events No recent Security Events currently on file CRITERIA MET - [facility] - 2 Visits in 30 Days CARE PROVIDERS There are no care providers on record at this time. Panchito has no Care Guidelines for this patient. Cl VISIT COUNT (12 MO.) 3 [facility] TOTAL 3 NOTE: Visits indicate total known visits. ED/C VISIT TRACKING (12 MO.) 03/11/2022 12:53 [facility] [place] TYPE: Emergency COMPLAINT: - DIZZINESS / VOMITING 03/06/2022 11:48 [facility] [place] TYPE: Emergency COMPLAINT: - DIFFICULTY BREATHING 01/27/2022 17:01 [facility] [place] TYPE: Emergency COMPLAINT: - BLOODY STOOL DIAGNOSES: - Unspecified atrial fibrillation - Type 2 diabetes mellitus without complications - Other associate professor of history (current) drug therapy - weight and test bar clerk (current) use of oral hypoglycemic drugs - Personal history of nicotine dependence - Hemorrhage of anus and rectum - Gastrointestinal hemorrhage, unspecified - Thrombocytopenia, unspecified INPATIENT VISIT TRACKING (12 MO.) 03/06/2022 13:46 [facility] [place] TYPE: Critical Care COMPLAINT: - SEPSIS, INFLUENZA A DIAGNOSES: - Sepsis, unspecified organism - Pure hypercholesterolemia, unspecified - Hemiplegia and hemiparesis following cerebral infarction affecting right dominant side - Other skilled nursing (current) drug therapy - Other specified sepsis - Melena - Influenza due to other identified influenza virus with the same other identified influenza virus pneumonia - Other skilled nursing (current) drug therapy - Personal history of nicotine dependence - Acute respiratory failure with hypoxia - Type 2 diabetes mellitus without complications - Acquired absence of other specified parts of digestive tract - weight and test bar clerk (current) use of anticoagulants - Influenza due to other identified influenza virus with the same other identified influenza virus pneumonia - Pure hypercholesterolemia, unspecified - Other secondary thrombocytopenia - Acquired absence of other specified parts of digestive tract - Hypokalemia - Other secondary thrombocytopenia - Unspecified atrial fibrillation - Hypokalemia - Thyrotoxicosis with diffuse goiter without thyrotoxic crisis or storm - Thyrotoxicosis with diffuse goiter without thyrotoxic crisis or storm - Personal history of nicotine dependence - Melena - Hemiplegia and hemiparesis following cerebral infarction affecting right dominant side - Contact with and (suspected) exposure to COVID-19 - Other specified sepsis - weight and test bar clerk (current) use of anticoagulants - Alcoholic hepatitis without ascites - Acute respiratory failure with hypoxia - Type 2 diabetes mellitus without complications - Alcoholic hepatitis without ascites - Contact with and (suspected) exposure to COVID-19 - Unspecified atrial fibrillation [email or web address]
== END 2022-03-11 17:50 | disposition home or self-care (01) ==
LOC: ED 12:52
DX: R53.1 Weakness (principal); J10.1 Influenza due to other identified influenza virus with other respiratory manifestations; K62.5 Hemorrhage of anus and rectum; I48.91 Unspecified atrial fibrillation; E11.9 Type 2 diabetes mellitus without complications; Z86.73 Personal history of transient ischemic attack (TIA), and cerebral infarction without residual deficits; Z87.891 Personal history of nicotine dependence; Z79.899 Other long term (current) drug therapy; Z20.822 Contact with and (suspected) exposure to COVID-19
CPT/HCPCS: 36415; 71045; 80053; 85025; 85060; 85610; 85730; 86850; 86900; 86901; 94640; 96360; 99284-25; J7040

== ENCOUNTER 2022-05-01 12:28 | Day surgery (SDC) | payer OTHER ==
[~2022-05-01] VITALS: Ht 165.1 cm; Wt 60.5 kg
--- NOTE | ~2022-05-01 | OR ---
[facility] [address] [place], [place] [address] Draft DATE OF OPERATION: 05/01/2022 SURGEON: Shirley Ragland MD PREOPERATIVE DIAGNOSES: 1. Low rectal carcinoma with regional adenopathy. 2. ITP (idiopathic thrombocytopenia purpura), preoperative platelet count 78,000. POSTOPERATIVE DIAGNOSES: 1. Low rectal carcinoma with regional adenopathy. 2. ITP (idiopathic thrombocytopenia purpura), preoperative platelet count 78,000. PROCEDURE: 1. Ultrasound assisted Port-A-Cath placement (ultimate site, left subclavian vein). 2. Surgeon-directed fluoroscopy. ANESTHESIA: General LMA, Jurgen Desai CRNA, and local 5 mL of 0.25% Marcaine with epinephrine. INDICATION: This 77-year-old tetlin English man is a patient of Gilson Hutchins. He was referred to me for consideration of anemia evaluation by Dr. Rodriguez and Gilson Hutchins. The patient has been on Xarelto for history of cerebrovascular accident, which he suffered in [place] following an appendectomy while traveling there to see family. Additionally, he has been followed by Dr. Rodriguez for several years with idiopathic thrombocytopenia purpura (ITP). Colonoscopy was performed by me more than two weeks ago, which confirmed a rectal neoplasm extending from approximately 5.1-10 cm. There was a circumferential involvement of the tumor. The patient has had persistent rectal bleeding and is now off his Xarelto. He remains in atrial fibrillation rhythm, however. Evaluation by Dr. Rodriguez, his oncologist has outlined neoadjuvant his chemoradiation therapy plan and he may ultimately undergo resection depending on his response to therapy and so on. Additional intervention for his ITP has been initiated by Dr. Rodriguez. He previously had a platelet count of 55,000 and with specific therapy over the past two weeks, now has a platelet count of 79,000. He is now to undergo implantation of a Port-A-Cath device for chemotherapy. He understands via his son, who interprets for him the risks of bleeding, infection, pneumothorax and other unforeseen complications, and on this basis, they wished to proceed. FINDINGS: Access to the right internal jugular was anticipated initially. Ultrasonographic PATIENT NAME: TEE OLIVEIRA OPERATIVE REPORT DATE OF : 45 REPORT #: [id number] PHYSICIAN: SHIRLEY RAGLAND MD PCP: GILSON HUTCHINS PAC REPORT IS CONFIDENTIAL AND NOT TO BE RELEASED WITHOUT AUTHORIZATION [facility] [address] [place], [place] [address] Draft evaluation showed that the internal jugular vein blade directly over the carotid artery. Initial attempt at right IJ approach allowed for entry to the vein, but the wire would not thread fully and on that basis re-attempt was undertaken. This showed passage of the needle into the carotid artery as the jugular was directly anterior to it. That site was abandoned after pressure applied to the site and a left subclavian approach undertaken. Had approach was without problem and the catheter was placed with good function at conclusion. A postprocedure chest x-ray is pending. DESCRIPTION OF PROCEDURE: The patient was brought to the operating room and given a general LMA type anesthetic. His head was turned to the left. His supportive pillow was removed optimizing his position. The LMA was rather bulky, given his thin neck and started the neck to some degree. The neck and upper torso were prepared with a chlorhexidine solution and draped sterilely. Preoperative antibiotics had been given. Sequential compression device stockings used. Using a SonoSite ultrasound probe with sterile covering, the right neck was evaluated. The internal jugular vein was directly over the carotid artery. This was true throughout the course of the vessel, extending from the clavicle cephalad to the ear. Nevertheless, an approach on the right internal jugular was deemed as reasonable. Under direct visualization, the right internal jugular vein was accessed showing dark nonpulsatile blood. A flexible J-wire was passed down the needle, but it would not thread as far as necessary, and the needle and wire were removed. Another attempt was made except on this occasion. Entry to the carotid artery was noted showing brighter pulsatile blood. The needle was promptly removed and pressure applied to the site for several minutes. There was no evidence of hematoma or bleeding in any way. It was deemed most advisable to simply do a left subclavian approach. The face was then turned towards the right and using the Seldinger technique, the left subclavian vein was easily accessed showing dark nonpulsatile blood. A flexible J-wire was passed down the needle without impediment. Fluoroscopy was used to confirm the wire in the right heart system. Subcutaneous and subdermal infiltration of 0.25% Marcaine with epinephrine was injected transversely over the pectoral area. An incision was made with a 15 blade. A pocket was created using blunt electrocautery dissection directly over the pectoralis fascia. A port that had been previously inspected and irrigated with heparinized saline was then partially secured to the pectoralis. At the entry site from which the wire exited, an incision was made with an 11 blade. The dilator and subsequently dilator and introducer sheath passed over the wire. The wire and dilator were removed showing vigorous nonpulsatile retrograde dark bleeding. Previously inspected Groshong catheter with a Eyesquad port kit was passed down the introducer as far as possible and the peel-away introducer removed stabilizing the PATIENT NAME: TEE OLIVEIRA OPERATIVE REPORT DATE OF : 45 REPORT #: [id number] PHYSICIAN: SHIRLEY RAGLAND MD PCP: GILSON HUTCHINS PAC REPORT IS CONFIDENTIAL AND NOT TO BE RELEASED WITHOUT AUTHORIZATION [facility] [address] [place], [place] [address] Draft catheter carefully. The patient was taken out of Trendelenburg position and aspiration on the catheter with heparinized saline syringe showed easy aspiration and flushing. Fluoroscopy was once again undertaken at this time, withdrawing the catheter to optimal position in the superior vena cava. The tunneling device was used to deliver the catheter to the pocket previously formed. The catheter was trimmed to appropriate length and attached to the port device and secured with the enclosed collar device per manufacture's instructions. The port was secured to the pectoralis fascia with the previously placed 2-0 Vicryl suture. Aspiration of angled Mckeon needle on the port had easy aspiration of dark nonpulsatile blood and easy flushing heparinized saline. The pocket was closed with interrupted 2-0 Vicryl and a running subcuticular 3-0 Vicryl for the skin. Steri-Strips were applied to each site. Access to the catheter percutaneously was undertaken with angled Mckeon needle continues showed good flow. Fluoroscopy confirmed the catheter configuration to be optimally placed and without kink or impediment to flow of the catheter itself. The patient was additionally managed with an op site to the puncture site in the subclavian area and an Acticoat dressing to the port site. He was ultimately extubated and taken to recovery room in good condition having suffered no known complications. Blood loss was less than 10 mL in aggregate. Sponge, needle, and instrument counts reported as correct x3. MD LALO Echevarria/MODL /[id number] cc: MD Gilson Forbes, DERKE Crowley MD, PH.D. PATIENT NAME: TEE OLIVEIRA BRONWOOD OPERATIVE REPORT DATE OF : 45 REPORT #: [id number] PHYSICIAN: SHIRLEY RAGLAND MD PCP: GILSON HUTCHINS REPORT IS CONFIDENTIAL AND NOT TO BE RELEASED WITHOUT AUTHORIZATION [facility] [address] [place] [id number] Draft Copies: EARL RODRIGUEZ MD, ERIKA PAC CHOE, JUNO ~ PATIENT NAME: LETEE OPERATIVE REPORT DATE OF : 45 REPORT #: [id number] PHYSICIAN: SHIRLEY RAGLAND MD PCP: GILSON HUTCHINS PAC REPORT IS CONFIDENTIAL AND NOT TO BE RELEASED WITHOUT AUTHORIZATION
[2022-05-01] MEDS ORDERED: OXYCODON-ACETA1 EAC2 PO (16:39)
[2022-05-01] MEDS ORDERED: IBUPROFEN600 MG PO (16:40)
[2022-05-01] MEDS ORDERED: ACETAMINOPHEN500 MG PO (16:40)
--- NOTE | 2022-05-01 17:14 | NUR ---
6625: PT ARRIVES TO UNIT VIA STRETCHER FROM PACU, AWAKE AND ALERT ON ARRIVAL. VSS, RESP EVEN AND UNLABORED ON 2L VIA NC. PT DENIES PAIN AND NAUSEA AT THIS TIME. ICE WATER PROVIDED. DRESSING C/D/I. SCDS IN PLACE. POC DISSCUSSED AND PT AGREEABLE. COMFORTABLE WITHOUT NEEDS AT THIS TIME, CALL LIGHT WITHIN REACH
--- NOTE | 2022-05-01 17:19 | NUR ---
05/01/22 1719 Maddy Baires 1617 PT ARRIVED IN PACU NON RESPONSIVE TO NOXIOUS STIMULI WITH OPA IN PLACE. O2 SATS 85% ON RA. O2 @ 6L VIA NC PLACED ON PT. 162 BLOOD SUGAR 101. ANESTHESIA AWARE. 162 PT REACTIVE. OPA REMOVED. 164 PCXR DONE. 164 SON AT BEDSIDE TRANSLATING. NO C/O'S. ENCOURAGED COUGH, DEEP BREATHING. O2 @ 4L VIA NC PLACED. 1655 TO DS. REPORT GIVEN TO RN.
--- NOTE | 2022-05-01 17:47 | NUR ---
1740: PT AWAKE AND ALERT. COMFORTABLE WITHOUT NEEDS OR REQUESTS AT THIS TIME. VSS, RESP EVEN AND UNLABORED ON RA. SON RETURNS TO BEDSIDE TO TRANSLATE. DRESSING C/D/I WITH SMALL AMOUNT OF RED DRAINAGE ON STERISTRIPS
--- NOTE | 2022-05-01 17:58 | NUR ---
1755: DRESSED WITH THE ASSISTANCE OF PT'S SON. DC INSTRUCTIONS PROVIDED AND DISCUSSED ORDERED. TRANSLATED BY SON AND UNDERSTANDING VOICED. PT WHEELED OFF OF UNIT IN WC. NO PHYSCICAL S/S OF DISTRESS
== END 2022-05-01 17:55 | disposition home or self-care (01) ==
LOC: DS 12:28
PROVIDERS: ATTEND Surgery
PROC: 0JHD0WZ Insertion of Totally Implantable Vascular Access Device into Right Upper Arm Subcutaneous Tissue and Fascia, Open Approach (ICD-10-PCS; principal; 2022-05-01 15:00)
DX: C20 Malignant neoplasm of rectum (principal); D69.3 Immune thrombocytopenic purpura; I48.91 Unspecified atrial fibrillation
CPT/HCPCS: 36415; 71045; 77001; 85025; J0690; J1100; J1644; J2001; J2370; J2405; J2704; J3010; J7121